=== PATIENT | male | born 1990 | race Hispanic/Latino ===

== ENCOUNTER 2019-02-20 12:32 | Emergency (ER) | payer SELFPAY ==
[2019-02-20 13:45] LABS: Absolute Lymphocytes (CBC) 1.3 K/uL (0.7-4.9); Basophils % 0.4 % (0-1.3); Hematocrit 42.2 % (39.6-49.0); Lymphocytes % 16.1 % (15.3-44.8); MPV 8.6 fL (7.6-11.3); RBC Red Blood Cell Count 4.75 M/uL (4.33-5.43)
[2019-02-20 13:53] LABS: Barbiturates NEGATIVE (NEGATIVE); Benzodiazepines NEGATIVE (NEGATIVE); Cocaine NEGATIVE (NEGATIVE); METHAMPHETAM NEGATIVE (NEGATIVE); Methadone NEGATIVE (NEGATIVE); Opiates NEGATIVE (NEGATIVE); Phencyclidine NEGATIVE (NEGATIVE); THC Cannibis NEGATIVE (NEGATIVE)
[2019-02-20 14:04] LABS: ALT/SGPT 121 U/L (12-78); AST/SGOT 54 U/L (15-37); Albumin 4.1 g/dL (3.4-5.0); Alkaline Phosphatase 69 U/L (45-117); BUN Blood Urea Nitrogen 10 mg/dL (7-18); Bicarbonate 31 mmol/L (21-32); Bilirubin Direct 0.2 mg/dL (0-0.2); Bilirubin Total 0.6 mg/dL (0.2-1.0); Glucose Level 135 mg/dL (74-106); Potassium 3.5 mmol/L (3.5-5.1); Protein, Total 7.8 g/dL (6.4-8.2); Sodium Level 140 mmol/L (136-145); Troponin (Emerg Dept Use Only) < 0.02 ng/mL (0.0-0.045)
[2019-02-20 14:08] LABS: Urine Blood NEGATIVE (NEG); Urine Glucose NEGATIVE (NEG); Urine Protein NEGATIVE (NEG); Urine Specific Gravity 1.025 (1.005-1.030); Urine pH 6.5 (5.0-7.0)
--- NOTE | 2019-02-20 14:13 | RAD REPORT ---
EXAM DESCRIPTION: RAD - Chest Single View - 02/20/2019 1:45 pm CLINICAL HISTORY: Chest pain COMPARISON: None. TECHNIQUE: AP portable chest image was obtained 1340 hours . FINDINGS: Lungs are clear. Heart and vasculature are normal. No measurable pleural effusion and no p neumothorax. No acute bony abnormality seen. No acute aortic findings suspected. IMPRESSION: No acute cardiopulmonary process.
--- NOTE | 2019-02-20 14:26 | ER ---
Nurse's Notes [facility] Name: Lang Oneill Age: 28 yrs Sex: Male : 1990 Arrival Date: 02/20/2019 Time: 12:34 Bed 17 Private MD: Diagnosis: Chest pain, unspecified Presentation: 02/20 12:39 Presenting complaint: Patient states: all week has been having some chest pain and iw today his left arm started feeling numb, cold, from shoulder to fingertips, also was feeling dizzy earlier. Transition of care: patient was not received from another setting of care. 12:39 Method Of Arrival: Ambulatory iw 12:40 Onset of symptoms was February 19, 2019. Risk Assessment: Do you want to hurt yourself iw or someone else? Patient reports no desire to harm self or others. Initial Sepsis Screen: Does the patient meet any 2 criteria? No. Patient's initial sepsis screen is negative. Does the patient have a suspected source of infection? No. Patient's initial sepsis screen is negative. Care prior to arrival: None. 12:40 Acuity: SUSIE 3 iw Triage Assessment: 12:49 General: Appears in no apparent distress. comfortable, Behavior is cooperative, bp appropriate for age, anxious. Pain: Complains of pain in chest. EENT: No deficits noted. Neuro: No deficits noted. Cardiovascular: Rhythm is sinus tachycardia. Respiratory: No deficits noted. GI: No signs and/or symptoms were reported involving the gastrointestinal system. : No signs and/or symptoms were reported regarding the genitourinary system. Derm: No deficits noted. Musculoskeletal: No deficits noted. Historical: - Allergies: 12:40 No Known Allergies; iw - Home Meds: 12:40 None [Active]; iw - PMHx: 12:40 None; iw - PSHx: 12:40 None; iw - Immunization history:: Adult Immunizations not up to date. - Social history:: Smoking status: Patient uses tobacco products, smokes one pack cigarettes per day. - Ebola Screening: : Patient negative for fever greater than or equal to 101.5 degrees Fahrenheit, and additional compatible Ebola Virus Disease symptoms Patient denies exposure to infectious person Patient denies travel to an Ebola-affected area in the 21 days before illness onset No symptoms or risks identified at this time. Screenin:56 Abuse screen: Denies threats or abuse. Denies injuries from another. Nutritional bp screening: No deficits noted. Tuberculosis screening: No symptoms or risk factors identified. Fall Risk None identified. Assessment: 12:50 General: SEE TRIAGE NOTE. bp 15:16 Reassessment: PT D/C HOME AMBULATORY, DX WITH NONSPECIC CHEST PAIIN. bp Vital Signs: 12:40 BP 142 / 87; Pulse 105; Resp 18; Temp 98.8(O); Pulse Ox 100% on R/A; Weight 114.76 kg; iw Height 5 ft. 11 in. (180.34 cm); Pain 0/10; 14:15 BP 122 / 98; Pulse 96; Resp 17; Pulse Ox 100% ; bp 12:40 Body Mass Index 35.29 (114.76 kg, 180.34 cm) iw ED Course: 12:34 Patient arrived in ED. rg4 12:40 Triage completed. iw 12:40 Arm band placed on. iw 12:47 Severino Feliz, [place] is Primary Nurse. bp 12:56 Patient has correct armband on for positive identification. Bed in low position. Call bp light in reach. Side rails up X2. 13:12 Jaiden Serrato NP is PHCP. pm1 13:12 Kee Dodd MD is Attending Physician. pm1 13:30 EKG done, by lab support technician. reviewed by Jaiden Serrato NP. 3 13:38 Initial lab(s) drawn, by or, sent to lab. Inserted saline lock: 22 gauge in right kj1 antecubital area, using aseptic technique. Blood collected. 13:45 XRAY Chest (1 view) In Process Unspecified. EDMS 15:18 No provider procedures requiring assistance completed. IV discontinued, intact, bp bleeding controlled, No redness/swelling at site. Pressure dressing applied. Administered Medications: No medications were administered Outcome: 14:26 Discharge ordered by . pm1 15:19 Discharged to home ambulatory. bp 15:19 Condition: stable 15:19 Discharge instructions given to patient, Instructed on discharge instructions, follow up and referral plans. Demonstrated understanding of instructions, follow-up care. 15:20 Patient left the ED. bp Signatures: Dispatcher [employer] EDMS Linda Hoffman RN RN Jaiden Serrato NP RESOLUTION REP pm1 Alba Keith rg4 Severino Feliz, RN RN bp Mary Desai sm3 Lydna Funez kj1 Corrections: (The following items were deleted from the chart) 12:41 12:40 BP 142 / 87; Pulse 105bpm; Resp 18bpm; Pulse Ox 100% RA; 114.76 kg; Height 5 ft. iw 11 in.; BMI: 35.2; Pain 0/10; iw
--- NOTE | 2019-02-20 14:27 | EDPHYS ---
Physician Documentation [facility] Name: Lang Oneill Age: 28 yrs Sex: Male : 1990 Arrival Date: 02/20/2019 Time: 12:34 Bed 17 Private MD: ED Physician Kee Dodd HPI: 02/20 13:43 This 28 yrs old Male presents to ER via Ambulatory with complaints of Chest pm1 pain, Numbness Of Arm. 13:43 The patient or guardian reports chest pain that is located primarily in the anterior pm1 aspect of left upper chest. The pain radiates to the left arm. Associated signs and symptoms: Pertinent negatives: abdominal pain, cough, diaphoresis, dizziness, headache, nausea, palpitations, shortness of breath, vomiting. The chest pain is described as a pressure. Duration: The patient or guardian reports a single episode, that is still ongoing, Onset: 7 days ago. Modifying factors: The symptoms are alleviated by Sleep. the symptoms are aggravated by nothing. Severity of pain: in the emergency department the pain has improved. The patient has not experienced similar symptoms in the past. The patient has not recently seen a physician. Historical: - Allergies: 12:40 No Known Allergies; iw - Home Meds: 12:40 None [Active]; iw - PMHx: 12:40 None; iw - PSHx: 12:40 None; iw - Immunization history:: Adult Immunizations not up to date. - Social history:: Smoking status: Patient uses tobacco products, smokes one pack cigarettes per day. - Ebola Screening: : Patient negative for fever greater than or equal to 101.5 degrees Fahrenheit, and additional compatible Ebola Virus Disease symptoms Patient denies exposure to infectious person Patient denies travel to an Ebola-affected area in the 21 days before illness onset No symptoms or risks identified at this time. ROS: 13:43 Constitutional: Negative for fever, chills, and weight loss, Eyes: Negative for injury, pm1 pain, redness, and discharge, ENT: Negative for injury, pain, and discharge, Neck: Negative for injury, pain, and swelling, Respiratory: Negative for shortness of breath, cough, wheezing, and pleuritic chest pain. 13:43 Abdomen/GI: Negative for abdominal pain, nausea, vomiting, diarrhea, and constipation, Back: Negative for injury and pain, : Negative for injury, bleeding, discharge, and swelling, MS/Extremity: Negative for injury and deformity, Skin: Negative for injury, rash, and discoloration, Neuro: Negative for headache, weakness, numbness, tingling, and seizure. 13:43 Cardiovascular: Positive for chest pain, Negative for edema, palpitations. Exam: 13:43 Constitutional: This is a well developed, well nourished patient who is awake, alert, pm1 and in no acute distress. Head/Face: Normocephalic, atraumatic. Neck: Trachea midline, no thyromegaly or masses palpated, and no cervical lymphadenopathy. Supple, full range of motion without nuchal rigidity, or vertebral point tenderness. No Meningismus. Chest/axilla: Normal chest wall appearance and motion. Nontender with no deformity. No lesions are appreciated. Cardiovascular: Regular rate and rhythm with a normal S1 and S2. No gallops, murmurs, or rubs. Normal PMI, no JVD. No pulse deficits. Respiratory: Lungs have equal breath sounds bilaterally, clear to auscultation and percussion. No rales, rhonchi or wheezes noted. No increased work of breathing, no retractions or nasal flaring. Abdomen/GI: Soft, non-tender, with normal bowel sounds. No distension or tympany. No guarding or rebound. No evidence of tenderness throughout. Back: No spinal tenderness. No costovertebral tenderness. Full range of motion. Skin: Warm, dry with normal turgor. Normal color with no rashes, no lesions, and no evidence of cellulitis. MS/ Extremity: Pulses equal, no cyanosis. Neurovascular intact. Full, normal range of motion. 13:43 Neuro: Orientation: is normal, Motor: is normal, moves all fours, Sensation: is normal, no obvious gross deficits, Gait: is steady, at a normal pace, without difficulty. Vital Signs: 12:40 BP 142 / 87; Pulse 105; Resp 18; Temp 98.8(O); Pulse Ox 100% on R/A; Weight 114.76 kg; iw Height 5 ft. 11 in. (180.34 cm); Pain 0/10; 14:15 BP 122 / 98; Pulse 96; Resp 17; Pulse Ox 100% ; bp 12:40 Body Mass Index 35.29 (114.76 kg, 180.34 cm) iw MDM: 13:12 Patient medically screened. pm1 13:45 Data reviewed: vital signs. Data interpreted: Pulse oximetry: on room air is 100 %. pm1 Interpretation: normal. 14:25 Counseling: I had a detailed discussion with the patient and/or guardian regarding: the pm1 historical points, exam findings, and any diagnostic results supporting the discharge/admit diagnosis, lab results, radiology results, the need for outpatient follow up, to return to the emergency department if symptoms worsen or persist or if there are any questions or concerns that arise at home. 02/20 13:16 Order name: UDS; Complete Time: 14:04 pm1 02/20 13:16 Order name: Basic Metabolic Panel; Complete Time: 14:25 pm1 02/20 13:16 Order name: CBC with Diff; Complete Time: 14:04 pm1 02/20 13:16 Order name: LFT's; Complete Time: 14:25 pm1 02/20 13:16 Order name: Troponin (emerg Dept Use Only); Complete Time: 14:25 pm1 02/20 13:57 Order name: Urine Dipstick--Ancillary (enter results); Complete Time: 14:25 eb 02/20 13:16 Order name: XRAY Chest (1 view); Complete Time: 14:25 pm1 02/20 13:16 Order name: EKG; Complete Time: 13:17 pm1 02/20 13:16 Order name: Cardiac monitoring; Complete Time: 14:01 pm1 02/20 13:16 Order name: EKG - Nurse/Tech; Complete Time: 14:01 pm1 02/20 13:16 Order name: IV Saline Lock; Complete Time: 14:01 pm1 02/20 13:16 Order name: Labs collected and sent; Complete Time: 14:01 pm1 02/20 13:16 Order name: O2 Per Protocol; Complete Time: 14:01 pm1 02/20 13:16 Order name: O2 Sat Monitoring; Complete Time: 14:01 pm1 Administered Medications: No medications were administered Disposition: 02/20/19 14:26 Discharged to Home. Impression: Chest pain, unspecified. - Condition is Stable. - Discharge Instructions: Nonspecific Chest Pain. - Medication Reconciliation Form, Thank You Letter, Antibiotic Education, Prescription Opioid Use form. - Follow up: Emergency Department; When: As needed; Reason: Worsening of condition. Follow up: Private Physician; When: 2 - 3 days; Reason: Recheck today's complaints, Continuance of care, Re-evaluation by your physician. - Problem is new. - Symptoms have improved. Addendum: 02/21/2019 15:21 Co-signature as Attending Physician, Kee Dodd MD. g s Signatures: Dispatcher [employer] EDLinda Hamm RN RN iw Jaiden Serrato, SCHOOL [employer]RARY MEDIA SPECIALIST SCHOOL [employer]RARY MEDIA SPECIALIST pm1 Kee Dodd MD MD gs Peltier, Brian RN RN bp Corrections: (The following items were deleted from the chart) 02/20 15:20 14:26 02/20/2019 14:26 Discharged to Home. Impression: Chest pain, unspecified. bp Condition is Stable. Forms are Medication Reconciliation Form, Thank You Letter, Antibiotic Education, Prescription Opioid Use. Follow up: Emergency Department; When: As needed; Reason: Worsening of condition. Follow up: Private Physician; When: 2 - 3 days; Reason: Recheck today's complaints, Continuance of care, Re-evaluation by your physician. Problem is new. Symptoms have improved. pm1
[2019-02-20 15:27] VITALS: TEMP 98.8; O2SAT 100
[2019-02-20 15:28] VITALS: BP 122/98
--- NOTE | 2019-02-21 12:56 | EKG ---
Test Date: 2019-02-20 Test Time: 13:25:00 Paralegal Instructor: CHETAN MEASUREMENT RESULTS: Intervals: Rate: 93 CT: 154 QRSD: 90 QT: 346 QTc: 430 Newton: P: 56 CT: 154 QRS: 2 T: 2 INTERPRETIVE STATEMENTS: Normal sinus rhythm Normal ECG No previous ECG available for comparison Electronically Signed On 02-21-19 12:55:00 CDT by Giancarlo Banegas
== END 2019-02-20 15:20 | disposition home or self-care (01) ==
LOC: ER 12:32
DX: R07.9 Chest pain, unspecified (principal); F17.210 Nicotine dependence, cigarettes, uncomplicated
CPT/HCPCS: 36415; 71045; 80048; 80076; 80307; 81003; 84484; 85025; 93005; 99284

== ENCOUNTER 2020-10-29 17:47 | Emergency (ER) | payer SELFPAY ==
--- OUTSIDE RECORDS SUMMARY | 2020-10-29 17:49 | XMS REPORT | Continuity of Care Document ---
:1990 Author Organization [facility] t Address [address] [place] [address] Care Team Providers Name Role Phone Elver Julia Velasquez Attending Clinician Unavailable Pob1, Care Clinic Attending Clinician Unavailable Problems This patient has no known problems. Allergies, Adverse Reactions, Alerts This patient has no known allergies or adverse reactions. Medications This patient has no known medications. Procedures This patient has no known procedures. Encounters Start End Encounter Admission Attending Care Care Encounter Source Date/Time Date/Time Type Type Clinicians Facility Department ID 2019-11-20 2019-11-20 Patient CHICHO Raya [id number] 00:00:00 00:00:00 Outreach Julia Sapp [id number] [place] [id number] Professio [phone] nal 044 Building 2019-11-19 2019-11-19 Urgent Pob1, Acute [facility] [id number] 08:37:42 09:52:09 [facility] [id number] [place] [id number] Professio [phone] nal 044 Office Building One Results This patient has no known results.
[2020-10-29] MEDS ORDERED: BUPIVACAINE 0.5% PF 10 ML VIAL ONE (21:44)
[2020-10-29] MEDS ORDERED: TETANUS & DIPHTHERIA TOX,ADULT 0.5 ML VIAL ONE (21:44)
--- NOTE | 2020-10-29 23:08 | EDPHYS ---
Physician Documentation [facility] Name: Lang Oneill Age: 30 yrs Sex: Male : 1990 Arrival Date: 10/29/2020 Time: 17:48 Bed 12 Private MD: ED Physician Karri Paez HPI: 10/29 21:12 This 30 yrs old Male presents to ER via Ambulatory with complaints of jmm Laceration - finger. 21:12 Onset: The symptoms/episode began/occurred acutely, just prior to arrival. Modifying jmm factors: The symptoms are alleviated by nothing, the symptoms are aggravated by nothing. Associated signs and symptoms: Pertinent negatives: decreased sensation distally, fever, numbness distally, tingling distally. This is a 30 year old male with no chronic medical conditions that presents to the ED with complaints of left 2nd finger injury which occurred after being cut by an edger. Denies other injury. Is not not UTD on tetanus immunization. . Historical: - Allergies: 18:40 No Known Allergies; kg - Home Meds: 18:40 None [Active]; kg - PMHx: 18:40 None; kg - PSHx: 18:40 None; kg - Immunization history:: Adult Immunizations not up to date, Last tetanus immunization: unknown. - Social history:: Smoking status: . ROS: 21:12 Constitutional: Negative for fever, chills, and weight loss, Cardiovascular: Negative jmm for chest pain, palpitations, and edema, Respiratory: Negative for shortness of breath, cough, wheezing, and pleuritic chest pain. 21:12 MS/extremity: Positive for laceration. 21:12 All other systems are negative. Exam: 21:12 Constitutional: This is a well developed, well nourished patient who is awake, alert, jmm and in no acute distress. Head/Face: atraumatic. Eyes: EOMI, no conjunctival erythema appreciated ENT: Moist Mucus Membranes Neck: Trachea midline, Supple Chest/axilla: Normal chest wall appearance and motion. Cardiovascular: Regular rate and rhythm. No edema appreciated Respiratory: Normal respirations, no respiratory distress appreciated Abdomen/GI: Non distended, soft Back: Normal ROM 21:12 Musculoskeletal/extremity: FROM noted to the left 2nd finger, < 2 sec dist cap refill, NVI. 21:12 Skin: 1.5 cm laceration noted to the left radial side of the 2nd finger. . 21:12 Neuro: Orientation: is normal, Mentation: is normal, Memory: is normal. 21:12 Psych: Behavior/mood is pleasant, cooperative. Vital Signs: 18:38 Pulse 86; Resp 20; Temp 97.1(TE); Pulse Ox 99% ; Weight 113.4 kg (R); Height 5 ft. 11 kg in. (180.34 cm) (R); Pain 2/10; 18:40 BP 97 / 82; kg 18:38 Body Mass Index 34.87 (113.40 kg, 180.34 cm) kg Laceration: 23:06 Wound Repair of 1.5cm ( 0.6in ) subcutaneous laceration to dorsal aspect of middle jmm phalanx of left index finger. Distal neuro/vascular/tendon intact. Anesthesia: Local anesthetic administered with 4 mls of 0.5% marcaine. Wound prep: Simple cleansing with betadine by me. Skin closed with 7 5-0 Prolene using simple sutures and sterile technique. Patient tolerated well. MDM: 21:08 Patient medically screened. [facility] 23:06 Data reviewed: vital signs, nurses notes. Counseling: I had a detailed discussion with mick the patient and/or guardian regarding: the historical points, exam findings, and any diagnostic results supporting the discharge/admit diagnosis, the need for outpatient follow up, to return to the emergency department if symptoms worsen or persist or if there are any questions or concerns that arise at home. ED course: Patient given wound infection return precautions. Patient understood and agrees with the plan of care. . Administered Medications: 21:26 Drug: Tetanus-Diphtheria Toxoid Adult 0.5 ml {Mirror Silverer: [employer]. Exp: em 07/09/2022. Lot #: [id number]. } Route: IM; Site: right deltoid; 21:30 Drug: Marcaine (bupivacaine)-Epinephrine (0.5 %) 10 ml Route: Infiltration; Site: wound;em Disposition: 10/30 06:40 Co-signature as Attending Physician, Karri Paez MD. mh7 Disposition: 10/29/20 23:08 Discharged to Home. Impression: Finger Laceration. - Condition is Stable. - Discharge Instructions: Laceration Care, Adult. - Prescriptions for Tramadol 50 mg Oral Tablet - take 1 tablet by ORAL route every 8 hours as needed; 12 tablet. Bactrim DS 800- 160 mg Oral Tablet - take 1 tablet by ORAL route every 12 hours for 7 days; 14 tablet. - Medication Reconciliation Form, Thank You Letter, Antibiotic Education, Prescription Opioid Use form. - Work release form (11/01/20 08:39). bd - Follow up: Private Physician; When: 7 - 10 days; Reason: Recheck today's complaints, Continuance of care, Staple/Suture removal, Re-evaluation by your physician. Signatures: Casper Carrasco PA PA jmm Munoz, Edgar, RN RN Rafaela Reed 5 Karri Paez MD MD 7 Heaven Amaya RN RN Tejal Marques Corrections: (The following items were deleted from the chart) 10/29 23:27 23:08 10/29/2020 23:08 Discharged to Home. Impression: Finger Laceration. Condition is mh5 Stable. Forms are Medication Reconciliation Form, Thank You Letter, Antibiotic Education, Prescription Opioid Use. Follow up: Private Physician; When: 7 - 10 days; Reason: Recheck today's complaints, Continuance of care, Staple/Suture removal, Re-evaluation by your physician. mick
--- NOTE | 2020-10-29 23:08 | ER ---
Nurse's Notes [facility] Name: Lang Oneill Age: 30 yrs Sex: Male : 1990 Arrival Date: 10/29/2020 Time: 17:48 Bed 12 Private MD: Diagnosis: Finger Laceration Presentation: 10/29 18:38 Chief complaint: Patient states: Patient cut his finger on frame trimmer. at 17:30. kg Coronavirus screen: Client denies travel out of the [place] in the last 14 days. At this time, unable to obtain information related to travel outside the [place] At this time, the client does not indicate any symptoms associated with coronavirus-19. Ebola Screen: Patient negative for fever greater than or equal to 101.5 degrees Fahrenheit, and additional compatible Ebola Virus Disease symptoms Patient denies exposure to infectious person. Patient denies travel to an Ebola-affected area in the 21 days before illness onset. Complicating Factors: There are no complicating factors for this patient. Initial Sepsis Screen: Does the patient meet any 2 criteria? No. Patient's initial sepsis screen is negative. Does the patient have a suspected source of infection? No. Patient's initial sepsis screen is negative. Risk Assessment: Do you want to hurt yourself or someone else? Patient reports no desire to harm self or others. Onset of symptoms was October 29, 2020 at 17:30. 18:38 Method Of Arrival: Ambulatory kg 18:38 Acuity: SUSIE 4 kg Triage Assessment: 18:41 General: Appears Behavior is calm, cooperative, appropriate for age, quiet. Pain: kg Complains of pain in right hand. Injury Description: Laceration sustained to dorsal aspect of middle phalanx of right ring finger and palmar aspect of middle phalanx of right ring finger is contaminated, was sustained 1-2 hours ago. is bleeding a small amount. Historical: - Allergies: 18:40 No Known Allergies; kg - Home Meds: 18:40 None [Active]; kg - PMHx: 18:40 None; kg - PSHx: 18:40 None; kg - Immunization history:: Adult Immunizations not up to date, Last tetanus immunization: unknown. - Social history:: Smoking status: . Screenin:40 Abuse screen: Denies threats or abuse. Denies injuries from another. Nutritional kg screening: No deficits noted. Tuberculosis screening: No symptoms or risk factors identified. Fall Risk None identified. Assessment: 18:42 Musculoskeletal: No deficits noted. Injury Description: Laceration sustained to dorsal kg aspect of distal phalanx of right ring finger, dorsal aspect of middle phalanx of right ring finger, palmar aspect of middle phalanx of right ring finger and right ring fingernail. Vital Signs: 18:38 Pulse 86; Resp 20; Temp 97.1(TE); Pulse Ox 99% ; Weight 113.4 kg (R); Height 5 ft. 11 kg in. (180.34 cm) (R); Pain 2/10; 18:40 BP 97 / 82; kg 18:38 Body Mass Index 34.87 (113.40 kg, 180.34 cm) kg ED Course: 17:48 Patient arrived in ED. as 18:39 Triage completed. kg 18:41 Arm band placed on right wrist. kg 19:31 Casper Carrasco PA is PHCP. [facility] 19:31 Karri Paez MD is Attending Physician. [facility] 21:20 Herrera Gonzalez, [place] is Primary Nurse. em 22:05 Assist provider with laceration repair on palmar aspect of distal phalanx of left index rr5 finger and palmar aspect of middle phalanx of left index finger that was 2.5 cm. or less using sutures. Set up tray. Performed by Casper CHANG Dressed with 4X4s, Neosporin, Patient tolerated well. 23:00 Patient did not have IV access during this emergency room visit. rr5 Administered Medications: 21:26 Drug: Tetanus-Diphtheria Toxoid Adult 0.5 ml {Commercial Real Estate Assistant: [employer]. Exp: em 07/09/2022. Lot #: [id number]. } Route: IM; Site: right deltoid; 21:30 Drug: Marcaine (bupivacaine)-Epinephrine (0.5 %) 10 ml Route: Infiltration; Site: wound;em Outcome: 23:08 Discharge ordered by . [facility] 23:25 Discharged to home ambulatory, with family. rr5 23:25 Condition: good 23:25 Discharge instructions given to patient, Instructed on discharge instructions, follow up and referral plans. medication usage, wound care, Demonstrated understanding of instructions, follow-up care, medications, wound care, Prescriptions given X 2. 23:27 Patient left the ED. [facility] Signatures: Casper Carrasco PA PA jmm Munoz, Edgar, RN RN Melanie Reed Maria [facility] Kenneth Villagomez RN RN rr5 Heaven Amaya RN RN kg
[2020-10-29 23:51] VITALS: TEMP 97.1; O2SAT 99
[2020-10-29 23:52] VITALS: BP 97/82
== END 2020-10-29 23:27 | disposition home or self-care (01) ==
LOC: ER 17:47
PROC: 0JQK0ZZ Repair Left Hand Subcutaneous Tissue and Fascia, Open Approach (ICD-10-PCS; principal; 2020-10-29)
DX: S61.211A Laceration without foreign body of left index finger without damage to nail, initial encounter (principal); W29.3XXA Contact with powered garden and outdoor hand tools and machinery, initial encounter; Z23 Encounter for immunization
CPT/HCPCS: 90714

== ENCOUNTER 2021-11-08 16:24 | Emergency (ER) | payer SELFPAY ==
[2021-11-08 18:22] LABS: Absolute Lymphocytes (CBC) 1.8 K/uL (0.7-4.9); Hematocrit 44.3 % (39.6-49.0); Lymphocytes % 24.5 % (15.3-44.8); MCV 87.4 fL (80-100); MPV 8.3 fL (7.6-11.3); RBC Red Blood Cell Count 5.07 M/uL (4.33-5.43)
[2021-11-08 18:26] LABS: Protime INR 1.09
[2021-11-08 18:39] LABS: ALT/SGPT 91 U/L (12-78); AST/SGOT 28 U/L (15-37); Albumin 3.8 g/dL (3.4-5.0); Alkaline Phosphatase 60 U/L (45-117); BUN Blood Urea Nitrogen 15 mg/dL (7-18); Bicarbonate 28 mmol/L (21-32); Bilirubin Direct 0.1 mg/dL (0-0.2); Bilirubin Total 0.4 mg/dL (0.2-1.0); Glomerular Filtration Rate 120 ml/min (=/>90); Glucose Level 94 mg/dL (74-106); Lipase 72 U/L (73-393); Magnesium 2.2 mg/dL (1.8-2.4); Potassium 3.9 mmol/L (3.5-5.1); Protein, Total 7.5 g/dL (6.4-8.2); Sodium Level 139 mmol/L (136-145); Troponin High Sensitivity < 3.0 pg/mL (<58.9)
--- NOTE | 2021-11-08 18:39 | RAD REPORT ---
EXAM DESCRIPTION: RAD - Chest Single View - 11/08/2021 6:33 pm CLINICAL HISTORY: CHEST PAIN Chest pain. COMPARISON: Chest Single View dated 02/20/2019 FINDINGS: Portable technique limits examination quality. The lungs are grossly clear. The heart is normal in size. No displaced fractures. IMPRESSION: No acute intrathoracic process suspected.
[2021-11-08] MEDS ORDERED: PANTOPRAZOLE 40 MG INJ ONE (18:57)
[2021-11-08] MEDS ORDERED: ONDANSETRON 4 MG/2 ML VIAL ONE (18:57)
--- NOTE | 2021-11-08 20:42 | RAD REPORT ---
EXAM DESCRIPTION: CTAbdomen Pelvis W Contrast - 11/08/2021 8:28 pm CLINICAL HISTORY: Abdominal pain. Epigastric pain COMPARISON: No comparisons TECHNIQUE: Biphasic CT imaging of the abdomen and pelvis was performed with 100 ml non-ionic IV cont rast. All CT scans are performed using dose optimization technique as appropriate and may include automated exposure control or mA/KV adjustment according to patient size. FINDINGS: The lung bases are clear. The liver is diffusely fatty. Spleen, pancreas, adrenal glands and kidneys are within normal limits. No bowel obstruction, free air, free fluid or abscess. The appendix is normal. No evidence of signi ficant lymphadenopathy. No suspicious bony findings. IMPRESSION: No acute intra-abdominal or pelvic finding. Fatty liver.
--- NOTE | 2021-11-08 21:30 | ER ---
Nurse's Notes [facility] Name: Lang Oneill Age: 31 yrs Sex: Male : 1990 Arrival Date: 11/08/2021 Time: 16:25 Bed 16 Private MD: Diagnosis: Epigastric pain;Chest pain, unspecified Presentation: 11/08 16:37 Chief complaint: Patient states: Pt denies chest pain. C/O Abdominal pain, ISAI flank ld1 pain since Sunday. Pt reports after eating he feels nauseous. Coronavirus screen: At this time, the client does not indicate any symptoms associated with coronavirus-19. Ebola Screen: No symptoms or risks identified at this time. Initial Sepsis Screen: Does the patient meet any 2 criteria? No. Patient's initial sepsis screen is negative. Does the patient have a suspected source of infection? No. Patient's initial sepsis screen is negative. Risk Assessment: Do you want to hurt yourself or someone else? Patient reports no desire to harm self or others. Onset of symptoms was November 08, 2021 at 16:38. 16:37 Method Of Arrival: Ambulatory ld1 16:37 Acuity: SUSIE 3 ld1 Triage Assessment: 16:38 General: Appears in no apparent distress. comfortable, Behavior is calm, cooperative, ld1 appropriate for age. Pain: Complains of pain in abdomen Pain does not radiate. Pain currently is 8 out of 10 on a pain scale. EENT: No signs and/or symptoms were reported regarding the EENT system. Neuro: Level of Consciousness is awake, alert, obeys commands, Oriented to person, place, time, situation. Cardiovascular: Capillary refill < 3 seconds Patient's skin is warm and dry. Respiratory: Airway is patent Respiratory effort is even, unlabored. GI: Abdomen is round non-distended. : No signs and/or symptoms were reported regarding the genitourinary system. Historical: - Allergies: 16:38 No Known Allergies; ld1 - Home Meds: 16:38 None [Active]; ld1 - PSHx: 16:38 None; ld1 - Immunization history:: Adult Immunizations up to date, Client reports having NOT received the Covid vaccine. - Social history:: Smoking status: Patient denies any tobacco usage or history of. Patient/guardian denies using alcohol. Screenin:44 Abuse screen: Denies threats or abuse. Denies injuries from another. Nutritional jh6 screening: No deficits noted. Tuberculosis screening: No symptoms or risk factors identified. Fall Risk None identified. Assessment: 17:30 General: Appears in no apparent distress. Behavior is calm, cooperative. Pain: jh6 Complains of pain in epigastric area Pain radiates to left subscapular area and right subscapular area Pain currently is 3 out of 10 on a pain scale. Quality of pain is described as burning, crampy, Pain began 2-3 days ago. Is intermittent, Aggravated by eating, layong down. 17:30 GI: Bowel sounds present X 4 quads. Abd is non tender X 4 quads Reports upper abdominal jh6 pain. 21:10 General: Appears in no apparent distress. comfortable, Behavior is calm, cooperative. lg3 Pain: Denies pain. Neuro: No deficits noted. Level of Consciousness is awake, alert, obeys commands, Oriented to person, place, time, situation. Cardiovascular: No deficits noted. Denies chest pain, shortness of breath, Capillary refill < 3 seconds Clubbing of nail beds is absent JVD is absent Patient's skin is warm and dry. Respiratory: No deficits noted. Airway is patent Trachea midline Respiratory effort is even, unlabored, Respiratory pattern is regular, symmetrical. GI: Bowel sounds present X 4 quads. Abd is soft X 4 quads Abd is non tender X 4 quads. : No deficits noted. No signs and/or symptoms were reported regarding the genitourinary system. EENT: No deficits noted. No signs and/or symptoms were reported regarding the EENT system. Derm: No deficits noted. No signs and/or symptoms reported regarding the dermatologic system. Skin is intact, is healthy with good turgor, Skin is dry, Skin temperature is warm. Musculoskeletal: No deficits noted. No signs and/or symptoms reported regarding the musculoskeletal system. Circulation, motion, and sensation intact. Range of motion: intact in all extremities. Vital Signs: 16:37 BP 116 / 68; Pulse 77; Resp 18; Temp 97.5(O); Pulse Ox 99% on R/A; Weight 117.93 kg; ld1 Height 5 ft. 11 in. (180.34 cm); Pain 7/10; 21:11 BP 124 / 74; Pulse 72; Resp 17 S; Pulse Ox 100% on R/A; lg3 16:37 Body Mass Index 36.26 (117.93 kg, 180.34 cm) ld1 ED Course: 16:25 Patient arrived in ED. rg4 16:30 Richie Kwok PA is PHCP. cp 16:30 Jez Buenrostro DO is Attending Physician. cp 16:38 Triage completed. ld1 16:38 Arm band placed on right wrist. ld1 17:42 Yumiko Rendon, [place] is Primary Nurse. jh6 17:44 No provider procedures requiring assistance completed. jh6 17:45 Bed in low position. Call light in reach. Side rails up X 1. jh6 17:53 Inserted saline lock: 20 gauge in left antecubital area, using aseptic technique. Blood jh6 collected. 18:35 XRAY Chest (1 view) In Process Unspecified. EDMS 19:24 Primary Nurse role handed off by Yumiko Rendon RN mw2 20:30 CT Abd/Pelvis - IV Contrast Only In Process Unspecified. EDMS 21:05 Luciana Devine, [place] is Primary Nurse. lg3 21:28 Roberto Tejeda MD is Referral Physician. cp 21:45 IV discontinued, intact, bleeding controlled, No redness/swelling at site. Pressure lg3 dressing applied. Administered Medications: 18:54 Drug: ProTONIX (pantoprazole) 40 mg Route: IVP; Site: left antecubital; jh6 18:54 Drug: Zofran (Ondansetron) 4 mg Route: IVP; Site: left antecubital; jh6 Medication: 21:45 VIS not applicable for this client. lg3 Outcome: 21:29 Discharge ordered by . cp 21:44 Discharged to home ambulatory. lg3 21:44 Condition: stable 21:44 Discharge instructions given to patient, Instructed on discharge instructions, follow up and referral plans. medication usage, Demonstrated understanding of instructions, follow-up care, medications, Prescriptions given X 2. 22:03 Patient left the ED. mw2 Signatures: Dispatcher [employer] EDMS Richie Kwok PA PA cp Garcia, Rubi rg4 Nathaniel Beck mw2 Luciana Devine RN RN lg3 Tari Valentino RN RN ld1 Yumiko Rendon RN RN jh6 Corrections: (The following items were deleted from the chart) 16:40 16:37 Chief complaint: Patient states: Pt denies chest pain. C/O Abdominal pain, ISAI ld1 flank pain since Sunday ld1 17:44 17:42 General: Appears in no apparent distress. Behavior is calm, cooperative, 6 jh6 17:44 17:42 Pain: Complains of pain in epigastric area Pain radiates to left subscapular area jh6 and right subscapular area Pain currently is 3 out of 10 on a pain scale. Quality of pain is described as burning, crampy, Pain began 2-3 days ago. Is intermittent, Aggravated by eating, layong down jh6
--- NOTE | 2021-11-08 21:30 | EDPHYS ---
Physician Documentation [facility] Name: aLng Oneill Age: 31 yrs Sex: Male : 1990 Arrival Date: 11/08/2021 Time: 16:25 Bed 16 Private MD: ED Physician Jez Buenrostro Historical: - Allergies: 11/08 16:38 No Known Allergies; ld1 - Home Meds: 16:38 None [Active]; ld1 - PSHx: 16:38 None; ld1 - Immunization history:: Adult Immunizations up to date, Client reports having NOT received the Covid vaccine. - Social history:: Smoking status: Patient denies any tobacco usage or history of. Patient/guardian denies using alcohol. Exam: 16:48 ECG was reviewed by the Attending Physician. cp Vital Signs: 16:37 BP 116 / 68; Pulse 77; Resp 18; Temp 97.5(O); Pulse Ox 99% on R/A; Weight 117.93 kg; ld1 Height 5 ft. 11 in. (180.34 cm); Pain 7/10; 21:11 BP 124 / 74; Pulse 72; Resp 17 S; Pulse Ox 100% on R/A; lg3 16:37 Body Mass Index 36.26 (117.93 kg, 180.34 cm) ld1 MDM: 17:34 Patient medically screened. cp 07/05 17:35 Order name: Basic Metabolic Panel; Complete Time: 18:40 cp /05 17:35 Order name: CBC with Diff; Complete Time: 18:40 cp /05 17:35 Order name: D-Dimer; Complete Time: 18:40 cp /05 17:35 Order name: LFT's; Complete Time: 18:40 cp 07/05 18:40 Interpretation: Normal except: ALT 91; GLOB 3.7; A/G 1.0. cp 07/05 17:35 Order name: Magnesium; Complete Time: 18:40 cp 07/05 17:35 Order name: PT-INR; Complete Time: 18:40 cp 07/05 17:35 Order name: Troponin HS; Complete Time: 18:40 cp 07/05 17:35 Order name: XRAY Chest (1 view); Complete Time: 18:41 cp 07/05 17:35 Order name: EKG; Complete Time: 17:36 cp 11/08 17:35 Order name: Cardiac monitoring; Complete Time: 17:45 cp 11/08 17:35 Order name: Lipase; Complete Time: 18:40 cp 11/08 18:42 Order name: CT Abd/Pelvis - IV Contrast Only; Complete Time: 21:08 cp 11/08 17:35 Order name: EKG - Nurse/Tech; Complete Time: 17:45 cp 11/08 17:35 Order name: IV Saline Lock; Complete Time: 18:54 cp 11/08 17:35 Order name: Labs collected and sent; Complete Time: 18:54 cp 11/08 17:35 Order name: O2 Per Protocol; Complete Time: 18:54 cp 11/08 17:35 Order name: O2 Sat Monitoring; Complete Time: 18:54 cp EC:48 Rate is 73 beats/min. Rhythm is regular. GA interval is normal. QRS interval is normal. cp QT interval is normal. T waves are Inverted in leads III, aVF, aVR. Interpreted by me. Reviewed by me. Administered Medications: 18:54 Drug: ProTONIX (pantoprazole) 40 mg Route: IVP; Site: left antecubital; [facility] 18:54 Drug: Zofran (Ondansetron) 4 mg Route: IVP; Site: left antecubital; [facility] Disposition: 21:40 Co-signature as Attending Physician, Jez ROGERS was immediately available on-site ms3 in the Emergency Department for consultation in the care of the Patient.. Disposition Summary: 11/08/21 21:29 Discharge Ordered Location: Home cp Problem: new cp Symptoms: have improved cp Condition: Stable cp Diagnosis - Epigastric pain cp - Chest pain, unspecified cp Followup: cp - With: Roberto Tejeda MD - When: 1 week - Reason: pain continues Discharge Instructions: - Discharge Summary Sheet cp - Nonspecific Chest Pain, Adult cp - Gastroesophageal Reflux Disease, Adult cp Forms: - Medication Reconciliation Form cp - Thank You Letter cp - Antibiotic Education cp - Prescription Opioid Use cp - Work release form lg3 Prescriptions: - Protonix 40 mg Oral Tablet - take 1 tablet by ORAL route once daily; 30 tablet; Refills: 0, Product cp Selection Permitted - Zofran 4 mg Oral Tablet - take 1 tablet by ORAL route every 12 hours As needed; 20 tablet; Refills: 0, cp Product Selection Permitted Signatures: Dispatcher [employer] EDMS Richie Kwok PA PA cp Sims, Marcus, DO DO ms3 Tari Valentino, RN RN ld1 Yumiko Rendon RN RN jh6
[2021-11-08 22:47] VITALS: TEMP 97.5
[2021-11-08 22:49] VITALS: BP 124/74; O2SAT 100
--- NOTE | 2021-11-09 11:08 | EKG ---
Test Date: 2021-11-08 Test Time: 16:46:51 [place] Supervisor: EDITA MEASUREMENT RESULTS: Intervals: Rate: 73 DC: 146 QRSD: 88 QT: 368 QTc: 405 [place]: P: 29 DC: 146 QRS: 4 T: -21 INTERPRETIVE STATEMENTS: Normal sinus rhythm T wave abnormality, consider inferior ischemia Abnormal ECG Compared to ECG 02/20/2019 13:25:00 T-wave abnormality now present Possible ischemia now present Electronically Signed On 11-09-21 11:06:29 CDT by Aron Goode
== END 2021-11-08 22:03 | disposition home or self-care (01) ==
LOC: ER 16:24
DX: R07.9 Chest pain, unspecified (principal); R10.13 Epigastric pain
CPT/HCPCS: 36415; 71045; 74177; 80048; 80076; 83690; 83735; 84484; 85025; 85379; 85610; 93005; C9113; J2405; Q9967

== ENCOUNTER 2022-04-11 13:25 | Inpatient (IN) | payer SELFPAY ==
--- OUTSIDE RECORDS SUMMARY | 2022-04-11 13:28 | XMS REPORT | Continuity of Care Document ---
:1990 Author Organization [facility] t Address [address] [place] [address] Care Team Providers Name Role Phone Julia Raya Attending Clinician Unavailable Pob1, Acute Care Clinic Attending Clinician Unavailable Jovita Loomis Attending Clinician Problems Condition Condition Condition Status Onset Resolution Last Treating Co mments Source Name Details Category Date Date Treatment Clinician Date Epigastric Epigastric Disease Active 2020-0 U nivers discomfort discomfort 7-15 it y of 00:00: [address] Belching Belching Disease Active 2020-0 Unive rs 7-15 ity of 00:00: [address] Allergies, Adverse Reactions, Alerts Allergy Allergy Status Severity Reaction(s) Onset Inactive Treating Comm ents Source Name Type Date Date Clinician NO KNOWN Drug Active Univers ALLERGIE Class ity of S [facility] Social History Social Habit Start Date Stop Date Quantity Comments Source History of Cigarette Smoker Universi ty of tobacco use [facility] Sex Assigned At Universit y of [facility] Exposure to Yes University SARS-CoV-2 [facility] (event) [place] Alcohol intake 2019-11-19 2019-11-19 University of 00:00:00 00:00:00 [facility] Alcohol Comment 2019-11-19 2019-11-19 occasional Universit y of 00:00:00 00:00:00 [facility] Smoking Status Start Date Stop Date Source Current some day smoker 2019-11-19 00:00:00 Univ ersity of [facility] Medications Ordered Filled Start Stop Current Ordering Indication Dosage Frequency Signature Comments Components Source Medication Medication Date Date Medication? Clinician (SIG) Name Name Omeprazole 2019-0 Yes [id number] 20mg Take 1 Univers 20 mg 7-15 tablet by ity of tablet 00:00: mouth [place] 00 daily. Medical Branch Omeprazole 2019-0 Yes [id number] 20mg Take 1 Univers 20 mg 7-15 tablet by ity of tablet 00:00: mouth [place] 00 daily. Medical Branch Omeprazole 2019- Yes [id number] 20mg Take 1 Univers 20 mg 7-15 tablet by ity of tablet 00:00: mouth [place] 00 daily. Medical Branch busPIRone 5 2020- No [id number] 5mg Take 1 Univers mg tablet 7-15 08-15 tablet by ity of 00:00: 04:59 mouth 2 [place] 00 :00 (two) Medical times Branch daily for 30 days. busPIRone 5 2019- 2020- No [id number] 5mg Take 1 Univers mg tablet 7-15 08-15 tablet by ity of 00:00: 04:59 mouth 2 [place] 00 :00 (two) Medical times [place] daily for 30 days. busPIRone 5 2019- No [id number] 5mg Take 1 Univers mg tablet 7-15 08-15 tablet by ity of 00:00: 04:59 mouth 2 [place] 00 :00 (two) Medical times Branch daily for 30 days. Vital Signs Vital Name Observation Time Observation Value Comments Source Systolic blood 2019-11-19 13:44:00 123 mm[Hg] [facility] Diastolic blood 2019-11-19 13:44:00 86 mm[Hg] [facility] [place] [facility] 2019-11-19 13:44:00 72 /min [facility] Body temperature 2019-11-19 13:44:00 37 Sherri [facility] Respiratory rate 2019-11-19 13:44:00 18 /min [facility] Body height 2019-11-19 13:44:00 182.9 cm [facility] Body weight 2019-11-19 13:44:00 112.492 kg [facility] BMI 2019-11-19 13:44:00 33.63 kg/m2 [facility] Oxygen saturation in 2019-11-19 13:44:00 98 /min [facility] blood by [facility] Pulse oximetry Branch Systolic blood 2019-11-19 13:44:00 123 mm[Hg] Univer sity of pressure [facility] Diastolic blood 2019-11-19 13:44:00 86 mm[Hg] Unive rsity of pressure [facility] Heart rate 2019-11-19 13:44:00 72 /min [facility] Body temperature 2019-11-19 13:44:00 37 Sherri [facility] 2019-11-19 13:44:00 18 /min [facility] Body height 2019-11-19 13:44:00 182.9 cm Universi ty [facility] Body weight 2019-11-19 13:44:00 112.492 kg [facility] BMI 2019-11-19 13:44:00 33.63 kg/m2 [facility] Oxygen saturation in 2019-11-19 13:44:00 98 /min [facility] blood by [facility] Pulse oximetry [place] Procedures Procedure Date / Time Performing Clinician Source Performed LIPASE 2019-11-19 14:37:00 Barbi Sorto [facility] THYROID STIMULATING 2019-11-19 14:37:00 Barbi Sorto [facility] HORMONE [facility] COMP. METABOLIC PANEL 2019-11-19 14:37:00 Barbi Sorto [facility] ([id number]) [facility] CBC WITH DIFFERENTIAL 2019-11-19 14:37:00 Barbi Sorto [facility] GLYCOSYLATED HEMOGLOBIN 2019-11-19 14:37:00 Barbi Sorto [facility] (A1C) [facility] Encounters Start End Encounter Admission Attending Care Care Encounter Source Date/Time Date/Time Type Type Clinicians Facility Department ID 2019-11-20 2019-11-20 Patient Elver IAMANOJ [id number] Univers 00:00:00 00:00:00 Outreach Julia Sapp [id number] ity corrie [place] 4.2.7.2.686 Jayashree Zamora [id number] [place] [address] Branch Building 2019-11-20 2019-11-20 Patient CHICHO Raya [id number] 00:00:00 00:00:00 Outreach Julia N [place] [id number] [place] 4.2.7.2.686 Professio [phone] [address] 2019-11-19 2019-11-19 Urgent Pob1, Acute Care [facility] 1. [id number] Univers 08:37:42 09:52:09 Care [facility] [id number] ity [facility] [id number] Juan Carlos as Professio [phone] Nh dical [address] Office Building One 2019-11-19 2019-11-19 Urgent Pob1, Acute [facility] [id number] 08:37:42 09:52:09 [facility] [id number] [place] 4.2.7.2.686 Professio [phone] [place] [address] Office Building [facility] 2019-11-19 2019-11-19 Outpatient R [facility] [id number] Univers 08:40:00 08:40:00 [facility] Results Test Description Test Time Test Comments Results Result Comments Source THYROID STIMULATING HORMONE 2019-11-19 17:48:00 Test Item Value Reference Range Interpretation Comme nts TSH (test code = 1309231886) See_Comment [Automated message] The system which generated this result transmitted ref erence range: 0.45 - 4.70 mIU/L. T he reference range was not used to interpret this result as saloni l/abnormal. Lab Interpretation (test code = Normal 34694-7) [facility] [id number] 17:48:00 Test Item Value Reference Range Interpretation Comments TSH (test code = See_Comment [Automated message] [id number]) The system whic h generated this result transmitted ref erence range: 0.45 - 4 .70 mIU/L. The refe rence range was not u sed to interpret this result as normal/abnor mal. Lab Interpretation (test Normal code = 20460-1) [facility] PAN[facility] ([id number])2019-11-19 17:17:00 Test Item Value Reference Range Interpretation Comments NA (test code = 138 mmol/L 135-145 8967744096) K (test code = 4.5 mmol/L 3.5-5 4113366949) CL (test code = 102 mmol/L 98-108 7491025343) CO2 TOTAL (test code = 26 mmol/L 23-31 5067923100) AGAP (test code = 2-16 2814987696) BUN (test code = 17 mg/dL 7-23 3937000997) GLUCOSE (test code = 97 mg/dL 70-110 8269087539) CREATININE (test code = 0.78 mg/dL 0.6-1.25 2230958978) TOTAL BILI (test code = 1.0 mg/dL 0.1-1.3 4925931548) CALCIUM (test code = 10.0 mg/dL 8.6-10.6 4053907560) T PROTEIN (test code = 7.8 g/dL 6.3-8.2 6068298535) ALBUMIN (test code = 4.6 g/dL 3.5-5 8364590971) ALK PHOS (test code = 51 U/L 34-122 4034788467) ALTv (test code = 115 U/L 5-50 H 1742-6) AST(SGOT) (test code = 62 U/L 13-40 H 4338635737) eGFR Calculation mL/min/1.73m2 (Non-) (test code = 8774580947) eGFR Calculation mL/min/1.73m2 () (test code = 5526303505) DON (test code = DON) Association of Glomerular Filtration Rate (GFR) and Staging of Kidney Disease* + --+ --+ ------+| GFR (mL/min/1.73 m2) ?| With Kidney Damage ?| ?Without Kidney Damage+ --------+ --------+ +| ?>90 ?| ?Stage one ?| ? Normal ?+ ---+ ---+ -------+| ?60-89 ?| ?Stage two ?| ? Decreased GFR ? + --+ --+ ------+| ?30-59 ?| ?Stage three ?| ? Stage three ? + --+ --+ ------+| ?15-29 ?| ?Stage four ? | ? Stage four ?+ ---+ ---+ -------+| ?<15 (or dialysis) ? ?| ?Stage five ? | ? Stage five ?+ ---+ ---+ -------+ *Each stage assumes the associated GFR level has been in effect for at least three months. ?Stages 1 to 5, with or without kidney disease, indicate chronic kidney disease. Notes: Determination of stages one and two (with eGFR >59mL/min/1.73 m2) requires estimation of kidney damage for at least three months as defined by structural or functional abnormalities of the kidney, manifested by either:Pathological abnormalities or Markers of kidney damage (including abnormalities in the composition of the blood or urine or abnormalities in imaging tests). Lab Interpretation Abnormal (test code = 57403-2) [facility] 17:17:00 Test Item Value Reference Range Interpretation Comments LIPASE (test code = 0284828715) 56 U/L 0-220 Lab Interpretation (test code = Normal 52223-5) [facility]OLIC PANEL ([id number])2019-11-19 17:17:00 Test Item Value Reference Range Interpretation Comments NA (test code = 138 mmol/L 135-145 1922855946) K (test code = 4.5 mmol/L 3.5-5 5135604471) CL (test code = 102 mmol/L 98-108 6763964730) CO2 TOTAL (test code = 26 mmol/L 23-31 6578077854) AGAP (test code = 2-16 1623447232) BUN (test code = 17 mg/dL 7-23 9639815015) GLUCOSE (test code = 97 mg/dL 70-110 8621971579) CREATININE (test code = 0.78 mg/dL 0.6-1.25 3890781956) TOTAL BILI (test code = 1.0 mg/dL 0.1-1.6 6056176749) CALCIUM (test code = 10.0 mg/dL 8.6-10.6 0234873397) T PROTEIN (test code = 7.8 g/dL 6.3-8.2 8656491731) ALBUMIN (test code = 4.6 g/dL 3.5-5 5960948382) ALK PHOS (test code = 51 U/L 34-122 4615779357) ALTv (test code = 115 U/L 5-50 H 1742-6) AST(SGOT) (test code = 62 U/L 13-40 H 0229950286) eGFR Calculation mL/min/1.73m2 (Non-) (test code = 7167543747) eGFR Calculation mL/min/1.73m2 () (test code = 4167987669) DON (test code = DON) Association of Glomerular Filtration Rate (GFR) and Staging of Kidney Disease* + --+ --+ ------+| GFR (mL/min/1.73 m2) ?| With Kidney Damage ?| ?Without Kidney Damage+ --------+ --------+ +| ?>90 ?| ?Stage one ?| ? Normal ?+ ---+ ---+ -------+| ?60-89 ?| ?Stage two ?| ? Decreased GFR ? + --+ --+ ------+| ?30-59 ?| ?Stage three ?| ? Stage three ? + --+ --+ ------+| ?15-29 ?| ?Stage four ? | ? Stage four ?+ ---+ ---+ -------+| ?<15 (or dialysis) ? ?| ?Stage five ? | ? Stage five ?+ ---+ ---+ -------+ *Each stage assumes the associated GFR level has been in effect for at least three months. ?Stages 1 to 5, with or without kidney disease, indicate chronic kidney disease. Notes: Determination of stages one and two (with eGFR >59mL/min/1.73 m2) requires estimation of kidney damage for at least three months as defined by structural or functional abnormalities of the kidney, manifested by either:Pathological abnormalities or Markers of kidney damage (including abnormalities in the composition of the blood or urine or abnormalities in imaging tests). Lab Interpretation Abnormal (test code = 13504-1) [facility] 17:17:00 Test Item Value Reference Range Interpretation Comments LIPASE (test code = 7280541512) 56 U/L 0-220 Lab Interpretation (test code = Normal 87613-8) [facility] H[facility]GLOBIN (A1C)2019-11-19 17:00:00 Test Item Value Reference Range Interpretation Comments HGB A1C (test code = 5.5 % 4-6 4548-4) DON (test code = DON) %A1C (NGSP) Interpretation (ADA)4.8-5.6 ? ? Normal or (Non-Diabetic Range)5.7-6.4 ? ? Increased Risk (Pre-Diabetic)>6.5 ?Diabetes Indicated Lab Interpretation Normal (test code = 30717-1) [facility] (A1C)2019-11-19 17:00:00 Test Item Value Reference Range Interpretation Comments HGB A1C (test code = 5.5 % 4-6 4548-4) DON (test code = DON) %A1C (NGSP) Interpretation (ADA)4.8-5.6 ? ? Normal or (Non-Diabetic Range)5.7-6.4 ? ? Increased Risk (Pre-Diabetic)>6.5 ?Diabetes Indicated Lab Interpretation Normal (test code = 48728-6) [facility] WITH [id number] 16:58:00 Test Item Value Reference Range Interpretation Comments WBC (test code = See_Comment [Automated 3690-2) message] The sy stem which generated this result transmitted reference range : 4.20 - 10.70 10*3/?L. The reference range was not used to interpret this result as normal/abnormal . RBC (test code = See_Comment [Automated 749-8) message] The sy stem which generated this result transmitted reference range : 4.26 - 5.52 10*6/?L. The reference range was not used to interpret this result as normal/abnormal . HGB (test code = 15.0 g/dL 12.2-16.4 718-7) HCT (test code = 45.5 % 38.4-49.3 4544-3) MCV (test code = 91.4 fL 81.7-95.6 787-2) MCH (test code = 30.1 pg 26.1-32.7 785-6) MCHC (test code = 33.0 g/dL 31.2-35 786-4) RDW-SD (test code = 38.3 fL 38.5-51.6 L 26772-3) RDW-CV (test code = 11.5 % 12.1-15.4 L 788-0) PLT (test code = See_Comment [Automated 777-3) message] The sy stem which generated this result transmitted reference range : 150 - 328 10*3/ ?L. The reference r [place] was not used to interpret this result as normal/abnormal . MPV (test code = 10.9 fL 9.8-13 05965-2) NRBC/100 WBC (test See_Comment [Automat ed code = 4081010737) message] The system which generated this result transmitted reference range : 0.0 - 10.0 /100 WBCs. The refer ence range was not u sed to interpret th is result as normal/abnormal . NRBC x10^3 (test code <0.01 See_Comment [Auto mated = 4060291796) message] The s ystem which generated this result transmitted reference range : 10*3/?L. The reference range was not used to interpret this result as normal/abnormal . GRAN MAT (NEUT) % 68.6 % (test code = 770-8) IMM GRAN % (test code 0.30 % = 7349423753) LYMPH % (test code = 21.7 % 736-9) MONO % (test code = 7.3 % 5905-5) EOS % (test code = 1.7 % 713-8) BASO % (test code = 0.4 % 706-2) GRAN MAT x10^3(ANC) 4.96 10*3/uL 1.99-6.95 (test code = 0827546962) IMM GRAN x10^3 (test <0.03 0-0.06 code = 1319805683) LYMPH x10^3 (test code 1.57 10*3/uL 1.09-3.23 = 731-0) MONO x10^3 (test code 0.53 10*3/uL 0.36-1.02 = 742-7) EOS x10^3 (test code = 0.12 10*3/uL 0.06-0.53 711-2) BASO x10^3 (test code 0.03 10*3/uL 0.01-0.09 = 704-7) Lab Interpretation Abnormal (test code = 59453-8) [facility] WITH [id number] 16:58:00 Test Item Value Reference Range Interpretation Comments WBC (test code = See_Comment [Automated 6690-2) message] The sy stem which generated this result transmitted reference range : 4.20 - 10.70 10*3/?L. The reference range was not used to interpret this result as normal/abnormal . RBC (test code = See_Comment [Automated 789-8) message] The sy stem which generated this result transmitted reference range : 4.26 - 5.52 10*6/?L. The reference range was not used to interpret this result as normal/abnormal . HGB (test code = 15.0 g/dL 12.2-16.4 718-7) HCT (test code = 45.5 % 38.4-49.3 4544-3) MCV (test code = 91.4 fL 81.7-95.6 787-2) MCH (test code = 30.1 pg 26.1-32.7 785-6) MCHC (test code = 33.0 g/dL 31.2-35 786-4) RDW-SD (test code = 38.3 fL 38.5-51.6 L 37636-2) RDW-CV (test code = 11.5 % 12.1-15.4 L 788-0) PLT (test code = See_Comment [Automated 777-3) message] The sy stem which generated this result transmitted reference range : 150 - 328 10*3/ ?L. The reference r [place] was not used to interpret this result as normal/abnormal . MPV (test code = 10.9 fL 9.8-13 49106-0) NRBC/100 WBC (test See_Comment [Automat ed code = 9985142160) message] The system which generated this result transmitted reference range : 0.0 - 10.0 /100 WBCs. The refer ence range was not u sed to interpret th is result as normal/abnormal . NRBC x10^3 (test code <0.01 See_Comment [Auto mated = 8856420052) message] The s ystem which generated this result transmitted reference range : 10*3/?L. The reference range was not used to interpret this result as normal/abnormal . GRAN MAT (NEUT) % 68.6 % (test code = 770-8) IMM GRAN % (test code 0.30 % = 9154908641) LYMPH % (test code = 21.7 % 736-9) MONO % (test code = 7.3 % 5905-5) EOS % (test code = 1.7 % 713-8) BASO % (test code = 0.4 % 706-2) GRAN MAT x10^3(ANC) 4.96 10*3/uL 1.99-6.95 (test code = 5224128553) IMM GRAN x10^3 (test <0.03 0-0.06 code = 7714573124) LYMPH x10^3 (test code 1.57 10*3/uL 1.09-3.23 = 731-0) MONO x10^3 (test code 0.53 10*3/uL 0.36-1.02 = 742-7) EOS x10^3 (test code = 0.12 10*3/uL 0.06-0.53 711-2) BASO x10^3 (test code 0.03 10*3/uL 0.01-0.09 = 704-7) Lab Interpretation Abnormal (test code = 27954-8) [facility]"
[2022-04-11] MEDS ORDERED: MORPHINE 4 MG/ML SYR ONE (14:36)
[2022-04-11] MEDS ORDERED: CIPROFLOXACIN 400mg IV 400 MG/200 ML BAG IV ONE (14:37)
[2022-04-11] MEDS ORDERED: METRONIDAZOLE 500mg IVPB 500 MG/100 ML BAG IV ONE (14:37)
[2022-04-11 14:40] LABS: Absolute Lymphocytes (CBC) 1.2 K/uL (0.7-4.9); Hematocrit 42.4 % (39.6-49.0); Lymphocytes % 11.9 % (15.3-44.8); MCV 87.9 fL (80-100); MPV 7.9 fL (7.6-11.3); RBC Red Blood Cell Count 4.82 M/uL (4.33-5.43)
[2022-04-11 14:59] LABS: Albumin 3.6 g/dL (3.4-5.0); Bilirubin Total 0.8 mg/dL (0.2-1.0); Potassium 3.8 mmol/L (3.5-5.1); Protein, Total 7.5 g/dL (6.4-8.2)
--- NOTE | 2022-04-11 15:30 | RAD REPORT ---
EXAM DESCRIPTION: CT - Pelvis W/Cont - 04/11/2022 3:10 pm CLINICAL HISTORY: Rectal abscess COMPARISON: None. TECHNIQUE: Computed axial tomography of the pelvis was obtained 100 cc Isovue-300 administered intra venously All CT scans are performed using dose optimization technique as appropriate and may include automated exposure control or mA/KV adjustment according to patient size. FINDINGS: 3 x 1 centimeter low-density fluid collection consistent with abscess lies posterior to th e anus. Mild thickening of the anal wall. No evidence of diverticulitis. No ascites. IMPRESSION: 3 x 1 centimeter perianal abscess
[2022-04-11] MEDS ORDERED: HYDROMORPHONE HCL 1 MG/ML INJ ONE (15:59)
--- NOTE | 2022-04-11 16:04 | EDPHYS ---
Physician Documentation [facility] Name: Lang Oneill Age: 31 yrs Sex: Male : 1990 Arrival Date: 04/11/2022 Time: 13:28 Bed 13 Private MD: ED Physician Jaime Amin HPI: 04/11 16:05 This 31 yrs old Male presents to ER via Ambulatory with complaints of Rectal kdr Abscess. 16:05 On of last week the patient felt pain when sitting down on the toilet. At that kdr time he had a bowel movement without complication. Since then, he has had increasing pain around his rectum. Patient states that yesterday he was in the shower and suddenly felt a sudden burst of fluid running down his buttock and leg. He felt somewhat lightheaded when this happened. He had no other associated symptoms. Since then he has continued to have pain in his rectal and perirectal area. Denies any blood in his stool or black tarry stools. Patient's not had this before. Patient does not appear to be in any acute distress and does not currently require acute intervention. Onset: The symptoms/episode began/occurred 4 day(s) ago. Severity of symptoms: At their worst the symptoms were mild in the emergency department the symptoms are unchanged. The patient has not experienced similar symptoms in the past. The patient has not recently seen a physician. Historical: - Allergies: 13:52 No Known Allergies; ss - Home Meds: 13:52 None [Active]; ss - PMHx: 13:52 None; ss - PSHx: 13:52 None; ss - Immunization history:: Client reports receiving the 2nd dose of the Covid vaccine. - Social history:: Smoking status: Reported history of juuling and/or vaping. ROS: 16:05 Constitutional: Negative for fever, chills, and weight loss, Eyes: Negative for injury, kdr pain, redness, and discharge, Neck: Negative for injury, pain, and swelling, Cardiovascular: Negative for chest pain, palpitations, and edema, Respiratory: Negative for shortness of breath, cough, wheezing, and pleuritic chest pain, Back: Negative for injury and pain, : Negative for injury, bleeding, discharge, and swelling, MS/Extremity: Negative for injury and deformity, Skin: Negative for injury, rash, and discoloration, Neuro: Negative for headache, weakness, numbness, tingling, and seizure activity. Psych: Negative for depression, anxiety, suicide ideation, homicidal ideation, and hallucinations, Allergy/Immunology: Negative for hives, rash, and allergies, Endocrine: Negative for neck swelling, polydipsia, polyuria, polyphagia, and marked weight changes, Hematologic/Lymphatic: Negative for swollen nodes, abnormal bleeding, and unusual bruising. 16:05 Abdomen/GI: Positive for rectal pain, Negative for abdominal cramps, abdominal distension, dysphagia, black/tarry stool, rectal bleeding, bowel incontinence, flatulence. Exam: 16:05 Constitutional: This is a well developed, well nourished patient who is awake, alert, kdr and in no acute distress. Head/Face: Normocephalic, atraumatic. Eyes: Pupils equal round and reactive to light, extra-ocular motions intact. Lids and lashes normal. Conjunctiva and sclera are non-icteric and not injected. Cornea within normal limits. Periorbital areas with no swelling, redness, or edema. Neck: Trachea midline, no thyromegaly or masses palpated, and no cervical lymphadenopathy. Supple, full range of motion without nuchal rigidity, or vertebral point tenderness. No Meningismus. Chest/axilla: Normal chest wall appearance and motion. Nontender with no deformity. No lesions are appreciated. Cardiovascular: Regular rate and rhythm with a normal S1 and S2. No gallops, murmurs, or rubs. Normal PMI, no JVD. No pulse deficits. Respiratory: Lungs have equal breath sounds bilaterally, clear to auscultation and percussion. No rales, rhonchi or wheezes noted. No increased work of breathing, no retractions or nasal flaring. Back: No spinal tenderness. No costovertebral tenderness. Full range of motion. Skin: Warm, dry with normal turgor. Normal color with no rashes, no lesions, and no evidence of cellulitis. MS/ Extremity: Pulses equal, no cyanosis. Neurovascular intact. Full, normal range of motion. Neuro: Awake and alert, GCS 15, oriented to person, place, time, and situation. Cranial nerves II-XII grossly intact. Motor strength 5/5 in all extremities. Sensory grossly intact. Cerebellar exam normal. Normal gait. Psych: Awake, alert, with orientation to person, place and time. Behavior, mood, and affect are within normal limits. 16:05 Abdomen/GI: Inspection: obese Bowel sounds: normal, Palpation: soft, nontender, Rectal exam: hemorrhoid(s), are not appreciated, swelling, that is mild, that is moderate, tenderness, that is mild, that is moderate. Vital Signs: 13:46 BP 119 / 62; Pulse 79; Resp 17; Temp 98.7(O); Pulse Ox 99% on R/A; Weight 102.06 kg; ss Height 5 ft. 11 in. (180.34 cm); Pain 6/10; 14:00 BP 103 / 64; Pulse 100; Resp 18 S; Pulse Ox 98% on R/A; Pain 7/10; kc6 15:00 BP 139 / 98; Pulse 95; Resp 18 S; Pulse Ox 100% on R/A; kc6 16:00 BP 114 / 82; Pulse 95; Resp 17 S; Pulse Ox 100% on R/A; kc6 17:00 BP 111 / 66; Pulse 99; Resp 18 S; Pulse Ox 100% on R/A; kc6 13:46 Body Mass Index 31.38 (102.06 kg, 180.34 cm) ss MDM: 16:04 Patient medically screened. kdr 16:04 Data reviewed: vital signs, nurses notes, lab test result(s), radiologic studies. kdr Counseling: I had a detailed discussion with the patient and/or guardian regarding: the historical points, exam findings, and any diagnostic results supporting the discharge/admit diagnosis, lab results, radiology results, the need for further work-up and treatment in the hospital. Physician consultation: Saravanan Menendez MD was called at 16:05, was contacted at 16:05, regarding consult, patient's condition, need to evaluate the patient as soon as possible, and will see patient in inpatient room, tomorrow. 04/11 14:15 Order name: CBC with Diff; Complete Time: 15:31 kdr 04/11 14:15 Order name: CMP; Complete Time: 15:31 kdr 04/11 14:15 Order name: CT Pelvis w cont; Complete Time: 15:31 kdr 04/11 17:21 Order name: SARS-COV-2 Antigen Rapid bd 04/11 17:41 Order name: SARS-COV-2 Antigen Rapid EDMS Administered Medications: 14:52 Drug: morphine 4 mg Route: IVP; Infused Over: 4 mins; Site: right forearm; kc6 15:52 Follow up: Response: No adverse reaction; Pain is unchanged, physician notified; RASS: kc6 Alert and Calm (0) 14:53 Drug: Cipro (ciprofloxacin) 400 mg Volume: 200 ml; Route: IVPB; Infused Over: 60 mins; kc6 Site: right forearm; 15:53 Follow up: Response: No adverse reaction; IV Status: Completed infusion kc6 14:53 Drug: metroNIDAZOLE 500 mg Volume: 100 ml; Route: IVPB; Infused Over: 30 mins; Site: kc6 right forearm; 15:53 Follow up: Response: No adverse reaction; IV Status: Completed infusion kc6 16:04 Drug: Dilaudid (HYDROmorphone) 1 mg Route: IVP; Site: right forearm; kc6 17:04 Follow up: Response: No adverse reaction; Pain is decreased; RASS: Alert and Calm (0) kc6 Disposition Summary: 04/11/22 16:04 Hospitalization Ordered Hospitalization Status: Observation kdr Provider: Kenneth Davis Location: Telemetry/MedSurg (observation) kdr Condition: Fair kdr Problem: new kdr Symptoms: have improved kdr Bed/Room Type: Standard kdr Room Assignment: 411(04/11/22 17:58) dw Diagnosis - Perianal abscess kdr Forms: - Medication Reconciliation Form kdr - SBAR form kdr Signatures: Dispatcher [employer] EDMS Ann Evans RN RN dw Rittger, Kevin, MD MD kdr Josephine Pulido RN RN Alma Nieto RN RN kc6 Corrections: (The following items were deleted from the chart) 17:58 16:04 kdr dw
--- NOTE | 2022-04-11 16:04 | ER ---
Nurse's Notes [facility] Name: Lang Oneill Age: 31 yrs Sex: Male : 1990 Arrival Date: 04/11/2022 Time: 13:28 Bed 13 Private MD: Diagnosis: Perianal abscess Presentation: 04/11 13:46 Chief complaint: Patient states: Abscess to rectal area that began on Sunday. Pt ss reports that this morning around 0600 he felt a pop, felt drainage and had some relief following that. Denies fever. Coronavirus screen: Client denies travel out of the [place] in the last 14 days. Ebola Screen: Patient denies exposure to infectious person. Patient denies travel to an Ebola-affected area in the 21 days before illness onset. Initial Sepsis Screen: Does the patient meet any 2 criteria? No. Patient's initial sepsis screen is negative. Does the patient have a suspected source of infection? No. Patient's initial sepsis screen is negative. Risk Assessment: Do you want to hurt yourself or someone else? Patient reports no desire to harm self or others. Onset of symptoms was April 08, 2022. 13:46 Method Of Arrival: Ambulatory ss 13:46 Acuity: SUSIE 3 ss Historical: - Allergies: 13:52 No Known Allergies; ss - Home Meds: 13:52 None [Active]; ss - PMHx: 13:52 None; ss - PSHx: 13:52 None; ss - Immunization history:: Client reports receiving the 2nd dose of the Covid vaccine. - Social history:: Smoking status: Reported history of juuling and/or vaping. Screenin:06 Abuse screen: Denies threats or abuse. Denies injuries from another. Nutritional kc6 screening: No deficits noted. Tuberculosis screening: No symptoms or risk factors identified. Fall Risk None identified. Assessment: 14:00 General: Appears in no apparent distress. uncomfortable, Behavior is calm, cooperative, kc6 appropriate for age. Pain: Complains of pain in rectum Pain does not radiate. Pain currently is 7 out of 10 on a pain scale. Quality of pain is described as sharp, Pain began 2-3 days ago. Is continuous, Alleviated by rest, Aggravated by increased activity, repositioning, Noted to be grimacing, Also complains of no other associated symptoms. Neuro: Seth Agitation-Sedation Scale (RASS): 0 - Alert and Calm Level of Consciousness is awake, alert, obeys commands, Oriented to person, place, time, situation, Appropriate for age. Cardiovascular: Heart tones S1 S2 present Capillary refill < 3 seconds. Respiratory: Airway is patent Trachea midline Respiratory effort is even, unlabored, Respiratory pattern is regular, symmetrical, Breath sounds are clear bilaterally. GI: Reports constipation. : No signs and/or symptoms were reported regarding the genitourinary system. EENT: No signs and/or symptoms were reported regarding the EENT system. Derm: No signs and/or symptoms reported regarding the dermatologic system. Skin is intact, Skin is pink, warm \T\ dry. Musculoskeletal: Circulation, motion, and sensation intact. Capillary refill < 3 seconds, Range of motion: intact in all extremities. 15:00 Reassessment: Patient appears in no apparent distress at this time. No changes from kc6 previously documented assessment. Patient and/or family updated on plan of care and expected duration. Pain level reassessed. Patient is alert, oriented x 3, equal unlabored respirations, skin warm/dry/pink. 16:00 Reassessment: Patient appears in no apparent distress at this time. No changes from kc6 previously documented assessment. Patient and/or family updated on plan of care and expected duration. Pain level reassessed. Patient is alert, oriented x 3, equal unlabored respirations, skin warm/dry/pink. 17:00 Reassessment: Patient appears in no apparent distress at this time. No changes from kc6 previously documented assessment. Patient and/or family updated on plan of care and expected duration. Pain level reassessed. Patient is alert, oriented x 3, equal unlabored respirations, skin warm/dry/pink. Vital Signs: 13:46 BP 119 / 62; Pulse 79; Resp 17; Temp 98.7(O); Pulse Ox 99% on R/A; Weight 102.06 kg; ss Height 5 ft. 11 in. (180.34 cm); Pain 6/10; 14:00 BP 103 / 64; Pulse 100; Resp 18 S; Pulse Ox 98% on R/A; Pain 7/10; kc6 15:00 BP 139 / 98; Pulse 95; Resp 18 S; Pulse Ox 100% on R/A; kc6 16:00 BP 114 / 82; Pulse 95; Resp 17 S; Pulse Ox 100% on R/A; kc6 17:00 BP 111 / 66; Pulse 99; Resp 18 S; Pulse Ox 100% on R/A; kc6 13:46 Body Mass Index 31.38 (102.06 kg, 180.34 cm) ED Course: 13:28 Patient arrived in ED. rg4 13:35 Jaime Amin MD is Attending Physician. kdr 13:50 Triage completed. ss 13:52 Arm band placed on right wrist. ss 14:16 Alma Nieto, NYLA is Primary Nurse. kc6 14:32 CMP Sent. kc6 14:32 CBC with Diff Sent. kc6 14:32 Inserted saline lock: 20 gauge in right forearm, using aseptic technique. Blood kc6 collected. 15:12 CT Pelvis w cont In Process Unspecified. EDMS 16:03 Kenneth Davis MD is Hospitalizing Provider. kdr 17:29 SARS-COV-2 Antigen Rapid Sent. kc6 18:06 Patient has correct armband on for positive identification. Placed in gown. Bed in low kc6 position. Call light in reach. Side rails up X2. Adult w/ patient. 18:06 No provider procedures requiring assistance completed. Patient admitted, IV remains in kc6 place. Administered Medications: 14:52 Drug: morphine 4 mg Route: IVP; Infused Over: 4 mins; Site: right forearm; kc6 15:52 Follow up: Response: No adverse reaction; Pain is unchanged, physician notified; RASS: kc6 Alert and Calm (0) 14:53 Drug: Cipro (ciprofloxacin) 400 mg Volume: 200 ml; Route: IVPB; Infused Over: 60 mins; kc6 Site: right forearm; 15:53 Follow up: Response: No adverse reaction; IV Status: Completed infusion kc6 14:53 Drug: metroNIDAZOLE 500 mg Volume: 100 ml; Route: IVPB; Infused Over: 30 mins; Site: kc6 right forearm; 15:53 Follow up: Response: No adverse reaction; IV Status: Completed infusion kc6 16:04 Drug: Dilaudid (HYDROmorphone) 1 mg Route: IVP; Site: right forearm; kc6 17:04 Follow up: Response: No adverse reaction; Pain is decreased; RASS: Alert and Calm (0) kc6 Medication: 18:07 VIS not applicable for this client. kc6 Outcome: 16:04 Decision to Hospitalize by Provider. kdr 18:06 Admitted to Med/surg accompanied by tech, via wheelchair, room 411, with chart. kc6 18:06 Condition: stable 18:06 Instructed on the need for admit. 20:51 Patient left the ED. shantel Signatures: Dispatcher [employer] EDMS Jaime Amin MD MD kdr Ballard, Brenda RN RN bb Josephine Pulido RN RN Alba Gonzalez 4 Alma Nieto RN RN kc6
[2022-04-11] MEDS ORDERED: ACETAMINOPHEN 325 MG TABLET PO PRN (17:16)
[2022-04-11] MEDS ORDERED: MORPHINE 4 MG/ML SYR IV PRN (17:17)
[2022-04-11] MEDS ORDERED: ONDANSETRON 4 MG/2 ML VIAL IV PRN (17:24)
--- NOTE | 2022-04-11 17:28 | P.HP ---
Certification for Inpatient Patient admitted to: Observation With expected LOS: <2 Midnights Patient will require the following post-hospital care: None Practitioner: I am a practitioner with admitting privileges, knowledge of patient current condition, hospital course, and medical plan of care. Services: Services provided to patient in accordance with Admission requirements found in Title 42 Section 412.3 of the Code of Federal Regulations Patient History Date of Service: 04/11/22 Reason for admission: Perianal abscess History of Present Illness: Patient is a 31-year-old male with a past medical history significant for obesity who presents with complaint of right buttocks induration\abscess. Patient reported that abscess is located on the right buttocks within the intergluteal cleft. Patient reported that he noticed an induration within the intergluteal cleft when he started having pain 2 days ago. Patient indicated that induration became more swollen and more painful over time. Patient rated pain today as 10/10 in severity and described pain as sharp in quality. Patient reported that his last bowel movement was 3 days ago. Patient reported that he could not have a bowel movement due to severe pain. Patient denies any other signs or symptoms. Symptoms are aggravated by movement, attempts at having bowel movement and relieved by mildly by pain medication. Patient decided to present to the hospital due to worsening symptoms. Allergies No Known Allergies Allergy (Unverified 01/10/12 14:05) - Past Medical/Surgical History -: Obesity Past Surgical History: Reviewed- Non-Contributory - Family History Family History: Reviewed- Non-Contributory - Social History Smoking Status: Current some day smoker (Patient reports that he vapes.) Alcohol use: No CD- Drugs: No Caffeine use: Yes Place of Residence: Home Review of Systems General: Unremarkable Eyes: Unremarkable ENT: Unremarkable Respiratory: Unremarkable Cardiovascular: As per HPI Gastrointestinal: Other (Right buttocks pain\swelling ) Genitourinary: Unremarkable Musculoskeletal: Unremarkable Integumentary: Unremarkable Neurological: Unremarkable Lymphatics: Unremarkable Physical Examination - Physical Exam General: Alert, In no apparent distress, Oriented x3, Cooperative HEENT: Atraumatic, PERRLA, Mucous membr. moist/pink, EOMI, Sclerae nonicteric Neck: Supple, 2+ carotid pulse no bruit, No LAD, Without JVD or thyroid abnormality Respiratory: Clear to auscultation bilaterally, Normal air movement Cardiovascular: No edema, Regular rate/rhythm, Normal S1 S2 Capillary refill: >2 Seconds Gastrointestinal: Normal bowel sounds, Other (Right buttocks swelling ) Musculoskeletal: No tenderness Integumentary: No rashes, Tenderness/swelling (In right buttocks ) Neurological: Normal speech, Normal strength at 5/5 x4 extr, Normal tone, Normal affect Lymphatics: No axilla or inguinal lymphadenopathy - Studies Laboratory Data (last 24 hrs) 04/11/22 14:31: Sodium 136, Potassium 3.8, BUN 15, Creatinine 1.01, Glucose 150 H, Total Bilirubin 0.8, AST 23, ALT 71, Alkaline Phosphatase 57 04/11/22 14:31: WBC 10.20, Hgb 14.4, Hct 42.4, Plt Count 231 Assessment and Plan - Plan --- Perrianal abscess. Noted on CT imaging. Surgeon consulted. Recommended keeping patient NPO. Patient placed on antibiotics. Further management per surgeon. --Acute pain. We will manage pain with current pain medication regimen. --Class I obesity. Likely secondary to excess calories intake. Patient counseled on weight reduction, diet and excise therapy. --Elevated blood pressure without diagnosis of hypertension. We will manage BP with hydralazine as needed. --DVT prophylaxis with SCDs. Discharge Plan: Home - Advance Directives Does patient have a Living Will: No Does patient have a Durable POA for Healthcare: No - Code Status/Comfort Care Code Status Assessed: Yes Physician Review: Patient Assessed, Agree with Above Assessment and Plan Critical Care: No
[2022-04-11 17:40] LABS: SARS-CoV-2 Antigen Rapid Res Negative (Negative)
[2022-04-11] MEDS ORDERED: HYDRALAZINE HCL 20 MG/ML VIAL IV PRN (18:58)
[2022-04-11 21:45] VITALS: BMI 35.5
[2022-04-11] MEDS: HYDROMORPHONE HCL 1 MG/ML INJ IV PRN (22:32)
[2022-04-11] MEDS: PIPER TAZO 3.375 GM in NA CHLORIDE 0.9% 100 ML IV SCH (22:33)
[2022-04-12] MEDS: PIPER TAZO 3.375 GM in NA CHLORIDE 0.9% 100 ML IV SCH ×2 (01:00→07:52)
[2022-04-12] MEDS: HYDROMORPHONE HCL 1 MG/ML INJ IV PRN ×2 (02:48→07:51)
[2022-04-12 05:08] LABS: Albumin 3.3 g/dL (3.4-5.0); Potassium 3.5 mmol/L (3.5-5.1)
[2022-04-12] MEDS ORDERED: KCL 20 MEQ/100 mL IVPB 20 MEQ/100 ML BAG IV SCH (07:00)
[2022-04-12] MEDS ORDERED: BUPIVACAINE 0.25% PF 10 ML VIAL ONE (07:37)
[2022-04-12] MEDS ORDERED: INFLUENZA VACCINE (for 6+ mo) 0.5 ML DOSE IMVAC ONE (08:00)
[2022-04-12] MEDS ORDERED: Ringers Lactate 1,000 ML IV ONE (08:29)
[2022-04-12] MEDS ORDERED: FENTANYL CITR 100 MCG/2 ML ONE (08:43)
[2022-04-12] MEDS ORDERED: propofoL 200 MG/20 ML VIAL IV ONE (08:43)
[2022-04-12] MEDS ORDERED: ONDANSETRON 4 MG/2 ML VIAL ONE (08:43)
[2022-04-12] MEDS ORDERED: LIDOCAINE 2% MPF 5 ML VIAL ONE (08:43)
[2022-04-12] MEDS ORDERED: MIDAZOLAM HCL 2 MG/2 ML INJ ONE (08:43)
[2022-04-12] MEDS ORDERED: KETOROLAC 30 MG/ML INJ ONE (08:59)
[2022-04-12] MEDS ORDERED: dexAMETHasone 10 MG/ML VIAL ONE (08:59)
--- NOTE | 2022-04-12 09:21 | P.OP ---
Preoperative diagnosis: Perirectal Abscess Postoperative diagnosis: Perirectal Abscess Primary procedure: Incision, Drainage, Debridement of perirectal abscess Anesthesia: GETA + Local Estimated blood loss: <25cc Specimen: cultures, debridement tissue Findings: multiloculated abscess near bertha cleft Complications: None Transferred to: Recovery Room Condition: Good
[2022-04-12 10:08] VITALS: O2SAT 96
[2022-04-12] MEDS ORDERED: POTASSIUM CL SA 10 MEQ TAB PO ONE (10:44)
--- NOTE | 2022-04-12 11:16 | OP ---
Date of Procedure: 04/12/2022 Surgeon: Saravanan Menendez MD, Preoperative Diagnosis: Perirectal abscess. Postoperative Diagnosis: Perirectal abscess. Procedure Performed: Incision, drainage and debridement of perirectal abscess. Anesthesia: General endotracheal plus local with 0.25% Marcaine some. Estimated Blood Loss: Less than 25 cc. Specimen: Culture sent for aerobic, anaerobic speciation and debridement tissue. Findings: Multiloculated abscess approximately 3.5 cm by 2 cm x 2 cm near the bertha cleft and interg luteal fold. Complications: None. Disposition: The patient was transferred to the recovery room in good condition. Procedure In Detail: After informed consent was obtained, the patient was brought to the operating r oom, prepped and draped in the usual sterile fashion after adequate anesthesia was achieved. A curvi linear incision in elliptical fashion was made around the area of obvious fluctuance with a 15-blade down to subcutaneous tissues. Electrocautery was used to dissect down the subcutaneous fat and up to the fascia overlying the muscle. I debrided an area of obvious abscess. Cultures sent both aerobic and anaerobic speciation at this time. All necrotic tissue was removed at this point. The area was digitized, found to be multiloculated without any extension into the perirectal area. It extended m ore toward the midline. After the tissue was cleansed off, it was curetted. Hemostasis was achieved with electrocautery. The area was copiously irrigated and then packed with sterile dressing. The pa tient tolerated the procedure well without evidence of complication and transferred to PACU in good c ondition. All counts were correct at the end of the case. DEJON/MYLENE Voice ID: [id number] Report ID: [id number]
--- NOTE | 2022-04-12 11:16 | CON ---
Date of Consultation: 04/12/2022 Brief History Of Present Illness: The patient is a 31-year-old male with past medical history for ob esity, who presents with complaints of right buttock induration and abscess, started draining spontan eously several days ago, but got significantly worse. It is near the intergluteal cleft. He had the swelling and pain significantly increased approximately 2 days ago and as such, he came to the [facility] ency room with the above-stated complaints. Past Medical History: Negative. Past Surgical History: Denies. Allergies: NO KNOWN DRUG ALLERGIES. Medications: None. Social History: He stopped smoking cigarettes 6 months ago, but he continues to have vape. He drink s alcohol recreationally. Denies recreational drug use. 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 Review of Systems: Ten-point review of systems other than HPI, denies. Physical Examination: General: At the time of my examination; he is awake, alert, oriented. Psychiatric: Appropriate, conversive. HEENT: Normocephalic. Sclerae anicteric. Mucous membranes moist. Oropharynx clear. Neck: Supple without JVD. Chest: Normal expansion and excursion. Cardiovascular: Regular rate and rhythm. Pulmonary: Clear to auscultation bilaterally. Abdomen: Soft, nontender, nondistended. No rebound or guarding. No focal peritonitis. Focused exa mination of perianal area shows a right indurated area with significant abscess consistent with a per irectal abscess on the right gluteal cleft on the anterior gluteal plane approximately 3 cm in size, tender to palpation with surrounding cellulitis. Extremities: No clubbing, cyanosis, or edema. Skin: Warm, dry. Laboratory Data: Reveals a white blood cell count of 10.2, hemoglobin 14.4, hematocrit of 42.4, plat elet count is 231, neutrophils 79%. His sodium is 134, potassium 3.5, chloride 101, carbon dioxide 2 9, BUN 16, creatinine 0.9, glucose 113, total bilirubin 1.0, AST 18, ALT 57, alkaline phosphatase 53. COVID was negative. He had a CT scan performed of the abdomen and pelvis, officially read as 3.1 c m perianal abscess/posterior to the anus, mild thickening of the anal wall. No evidence of diverticu litis. No ascites. Assessment And Plan: This is a 31-year-old male, who presents signs and symptoms of perianal abscess /perirectal abscess. 1.IV fluid hydration. 2.Antibiotic coverage. 3.I have explained the risks, benefits, and alternatives of incision, drainage, debridement of the p erianal abscess including, but not limited to bleeding, infection, damage to surrounding tissue, need for further operation and procedure. The patient agreed to proceed as indicated. DEJON/MYLENE Voice ID: [id number] Report ID: [id number]
[2022-04-12 12:06] VITALS: BP 92/52; TEMP 96.8
--- NOTE | 2022-04-12 12:10 | P.DS ---
Admission Date: 04/11/22 Discharge Date: 04/12/22 Disposition: ROUTINE DISCHARGE Discharge Condition: GOOD Reason for Admission: Perianal abscess Consultations: General Surgery - Dr. Cordoba Brief History of Present Illness: 31-year-old male with a past medical history significant for obesity who presents with complaint of right buttocks induration\\abscess. Patient reported that abscess is located on the right buttocks within the intergluteal cleft. Patient reported that he noticed an induration within the intergluteal cleft when he started having pain 2 days ago. Patient indicated that induration became more swollen and more painful over time. Patient rated pain today as 10/10 in severity and described pain as sharp in quality. Patient reported that his last bowel movement was 3 days ago. Patient reported that he could not have a bowel movement due to severe pain. Patient denies any other signs or symptoms. Symptoms are aggravated by movement, attempts at having bowel movement and relieved by mildly by pain medication. Patient decided to present to the hospital due to worsening symptoms. Hospital Course: Problem List Perirecal Abscess Obese Patient presented with a mohit-rectal abscess. Dr. Cordoba was consulted and patient was taken to OR for I&D. Patient towerent issa velez and rupali soto Vital Signs/Physical Exam: Temp Pulse Resp BP Pulse Ox 96.8 F 68 16 92/52 L 97 04/12/22 12:00 04/12/22 12:00 04/12/22 12:00 04/12/22 12:00 04/12/22 12:00 General: Alert, In no apparent distress, Oriented x3 HEENT: EOMI, Sclerae nonicteric Neck: Supple, No LAD Respiratory: Clear to auscultation bilaterally, Normal air movement Cardiovascular: No edema, Regular rate/rhythm Gastrointestinal: Soft and benign, Non-distended, No tenderness Musculoskeletal: No contractures, No tenderness Integumentary: No rashes, No significant lesion Neurological: Normal speech, Normal strength at 5/5 x4 extr, Normal affect Laboratory Data at Discharge: WBC 10.20 K/uL (4.3-10.9) 04/11/22 14:31 Hgb 14.4 g/dL (13.6-17.9) 04/11/22 14:31 Hct 42.4 % (39.6-49.0) 04/11/22 14:31 Plt Count 231 K/uL (152-406) 04/11/22 14:31 Sodium 134 mmol/L (136-145) L 04/12/22 04:04 Potassium 3.5 mmol/L (3.5-5.1) 04/12/22 04:04 BUN 16 mg/dL (7-18) 04/12/22 04:04 Creatinine 0.94 mg/dL (0.55-1.3) 04/12/22 04:04 Glucose 113 mg/dL (74-106) H 04/12/22 04:04 Total Bilirubin 1.0 mg/dL (0.2-1.0) 04/12/22 04:04 AST 18 U/L (15-37) 04/12/22 04:04 ALT 57 U/L (12-78) 04/12/22 04:04 Alkaline Phosphatase 53 U/L (45-117) 04/12/22 04:04 Home Medications: Amox/Clavulanate [Augmentin 875-125 Tab] 1 tab PO BID 7 Days #14 tab 04/12/22 New Medications: Amox/Clavulanate [Augmentin 875-125 Tab] 1 tab PO BID 7 Days #14 tab Physician Discharge Instructions: PROBLEM: (list out Acute Problems for the Current visit) Perianal Abscess GOAL: Clear understanding of disease process INSTRUCTIONS: daily packing with 1/2" packing with vashe damp to dry Follow up with PCP in 1 to 2 weeks Follow up with Dr. Cordoba in office in 2-3 days Diet: Regular Activity: Ad shirley Follow up with a General Surgeon : VLADIMIR CORDOBA MD [address] [place] [id number] = Diet: Regular Activity: Ad shirley Followup: Vladimir Cordoba MD [ACTIVE - CAN ADMIT] - NONE,NONE [Primary Care Provider] - Time spent managing pt's care (in minutes): 45
== END 2022-04-12 13:08 | disposition home or self-care (01) | DRG 346 ==
LOC: ER 13:25 → ERHOLD 17:14 → 4TH 18:22 → OBSVTOIN 21:54
PROVIDERS: ADMIT Hospitalist; ATTEND Hospitalist
PROC: 0D9P0ZZ Drainage of Rectum, Open Approach (ICD-10-PCS; principal; 2022-04-11)
DX: K61.1 Rectal abscess (principal); R03.0 Elevated blood-pressure reading, without diagnosis of hypertension; E66.9 Obesity, unspecified; Z68.35 Body mass index [BMI] 35.0-35.9, adult; Z71.3 Dietary counseling and surveillance; F17.290 Nicotine dependence, other tobacco product, uncomplicated; Z20.822 Contact with and (suspected) exposure to COVID-19
CPT/HCPCS: 36415; 72193; 80053; 85025; 87040; 87070; 87075; 87077; 87186; 87205; 87811; 88304; 96365; 96368; 96375; 99285; G0378; J0744; J1100; J1170; J2001; J2250; J2405; J2543; J2704; J3010; J7120; Q9967

== ENCOUNTER 2023-01-22 09:01 | Emergency (ER) | payer SELFPAY ==
--- OUTSIDE RECORDS SUMMARY | 2023-01-22 09:04 | XMS REPORT | Continuity of Care Document ---
:1990 Author Organization [facility] t Address [address] [facility] [address] [place] [address] Care Team Providers Name Role Phone Julia Raya Attending Clinician Unavailable Pob1, Acute Care Clinic Attending Clinician Unavailable Jovita Loomis Attending Clinician Problems Condition Condition Condition Status Onset Resolution Last Treating Co mments Source Name Details Category Date Date Treatment Clinician Date Epigastric Epigastric Disease Active 2020-0 U nivers discomfort discomfort 7-15 it y of 00:00: [address] Belching Belching Disease Active 2020-0 Unive rs 7-15 ity of 00:00: [address] Allergies, Adverse Reactions, Alerts Allergy Allergy Status Severity Reaction(s) Onset Inactive Treating Comm ents Source Name Type Date Date Clinician NO KNOWN Drug Active Univers ALLERGIE Class ity of S [facility] Social History Social Habit Start Date Stop Date Quantity Comments Source History of Cigarette Smoker Universi ty of tobacco use [facility] Sex Assigned At Universit y [facility] Exposure to Yes University SARS-CoV-2 [facility] (event) [place] Alcohol intake 2019-11-19 2019-11-19 University of 00:00:00 00:00:00 [facility] Alcohol Comment 2019-11-19 2019-11-19 occasional Universit y of 00:00:00 00:00:00 [facility] Smoking Status Start Date Stop Date Source Current some day smoker 2019-11-19 00:00:00 Univ ersity of [facility] Medications Ordered Filled Start Stop Current Ordering Indication Dosage Frequency Signature Comments Components Source Medication Medication Date Date Medication? Clinician (SIG) Name Name Omeprazole 2019-0 Yes [id number] 20mg Take 1 Univers 20 mg 7-15 tablet by ity of tablet 00:00: mouth [place] 00 daily. Medical Branch Omeprazole 2019-0 Yes [id number] 20mg Take 1 Univers 20 mg 7-15 tablet by ity of tablet 00:00: mouth [place] 00 daily. Medical Branch Omeprazole 2019- Yes [id number] 20mg Take 1 Univers 20 mg 7-15 tablet by ity of tablet 00:00: mouth [place] 00 daily. Medical Branch busPIRone 5 2020- No [id number] 5mg Take 1 Univers mg tablet 7-15 08-15 tablet by ity of 00:00: 04:59 mouth 2 [place] 00 :00 (two) Medical times Branch daily for 30 days. busPIRone 5 2019- 2020- No [id number] 5mg Take 1 Univers mg tablet 7-15 08-15 tablet by ity of 00:00: 04:59 mouth 2 [place] 00 :00 (two) Medical times [place] daily for 30 days. busPIRone 5 2019- No [id number] 5mg Take 1 Univers mg tablet 7-15 08-15 tablet by ity of 00:00: 04:59 mouth 2 [place] 00 :00 (two) Medical times Branch daily for 30 days. Vital Signs Vital Name Observation Time Observation Value Comments Source Systolic blood 2019-11-19 13:44:00 123 [facility]Hg[facility] Diastolic blood 2019-11-19 13:44:00 86 mm[Hg] [facility] Heart rate 2019-11-19 13:44:00 72 /min [facility] Body temperature 2019-11-19 13:44:00 37 Sherri [facility] Respiratory rate 2019-11-19 13:44:00 18 /min [facility] Body height 2019-11-19 13:44:00 182.9 cm [facility] Body weight 2019-11-19 13:44:00 112.492 kg [facility] BMI 2019-11-19 13:44:00 33.63 kg/m2 [facility] Oxygen saturation in 2019-11-19 13:44:00 98 /min [facility] blood by [facility] Pulse oximetry Branch Systolic blood 2019-11-19 13:44:00 123 mm[Hg] Univer sity of pressure [facility] Diastolic blood 2019-11-19 13:44:00 86 mm[Hg] Unive rsity of pressure [facility] Heart rate 2019-11-19 13:44:00 72 /min [facility] Body temperature 2019-11-19 13:44:00 37 Sherri [facility] Res[facility] 2019-11-19 13:44:00 18 /min [facility] Body height 2019-11-19 13:44:00 182.9 cm Universi ty [facility] Body weight 2019-11-19 13:44:00 112.492 kg [facility] BMI 2019-11-19 13:44:00 33.63 kg/m2 [facility] Oxygen saturation in 2019-11-19 13:44:00 98 /min [facility] blood by [facility] Pulse oximetry [place] Procedures Procedure Date / Time Performing Clinician Source Performed LIPASE 2019-11-19 14:37:00 Barbi Sorto [facility] THYROID STIMULATING 2019-11-19 14:37:00 Barbi Sorto [facility] HORMONE [facility] COMP. METABOLIC PANEL 2019-11-19 14:37:00 Barbi Sorto [facility] ([id number]) [facility] CBC WITH DIFFERENTIAL 2019-11-19 14:37:00 Barbi Sorto [facility] GLYCOSYLATED HEMOGLOBIN 2019-11-19 14:37:00 Barbi Sorto [facility] (A1C) [facility] Encounters Start End Encounter Admission Attending Care Care Encounter Source Date/Time Date/Time Type Type Clinicians Facility Department ID 2019-11-20 2019-11-20 Patient Elver GAMANOJ [id number] Univers 00:00:00 00:00:00 Outreach Julia Sapp [id number] ity corrie AmaroSeanor [id number] Jayashree Zamora [phone] [place] [address] Branch Building 2019-11-20 2019-11-20 Patient CHICHO Raya [id number] 00:00:00 00:00:00 Outreach Julia N [place] [id number] Sean[place] [id number] Professio [phone] [address] 2019-11-19 2019-11-19 Urgent Pob1, Acute Care [facility] 1. [id number] Univers 08:37:42 09:52:09 Care [facility] [id number] ity [facility] [id number] Juan Carlos as Professio [phone] Ga dical [address] Office Building One 2019-11-19 2019-11-19 Urgent Pob1, Acute [facility] [id number] 08:37:42 09:52:09 [facility] [id number] [place] [id number] Professio [phone] [place] [address] Office Building [facility] 2019-11-19 2019-11-19 Outpatient R [facility] [id number] Univers 08:40:00 08:40:00 [facility] Results Test Description Test Time Test Comments Results Result Comments Source THYROID STIMULATING HORMONE 2019-11-19 17:48:00 Test Item Value Reference Range Interpretation Comme nts TSH (test code = 4213296371) See_Comment [Automated message] The system which generated this result transmitted ref erence range: 0.45 - 4.70 mIU/L. T he reference range was not used to interpret this result as saloni l/abnormal. Lab Interpretation (test code = Normal 80179-1) [facility] [id number] 17:48:00 Test Item Value Reference Range Interpretation Comments TSH (test code = See_Comment [Automated message] [id number]) The system whic h generated this result transmitted ref erence range: 0.45 - 4 .70 mIU/L. The refe rence range was not u sed to interpret this result as normal/abnor mal. Lab Interpretation (test Normal code = 16579-2) [facility] ([id number])2019-11-19 17:17:00 Test Item Value Reference Range Interpretation Comments NA (test code = 138 mmol/L 135-145 3686240893) K (test code = 4.5 mmol/L 3.5-5 9920576726) CL (test code = 102 mmol/L 98-108 5798619232) CO2 TOTAL (test code = 26 mmol/L 23-31 2872502132) AGAP (test code = 2-16 8984621649) BUN (test code = 17 mg/dL 7-23 8427508194) GLUCOSE (test code = 97 mg/dL 70-110 7719077570) CREATININE (test code = 0.78 mg/dL 0.6-1.25 6539972200) TOTAL BILI (test code = 1.0 mg/dL 0.1-1.2 1874698185) CALCIUM (test code = 10.0 mg/dL 8.6-10.6 3374930331) T PROTEIN (test code = 7.8 g/dL 6.3-8.2 8508229802) ALBUMIN (test code = 4.6 g/dL 3.5-5 4305245050) ALK PHOS (test code = 51 U/L 34-122 1591563655) ALTv (test code = 115 U/L 5-50 H 1742-6) AST(SGOT) (test code = 62 U/L 13-40 H 7577909148) eGFR Calculation mL/min/1.73m2 (Non-) (test code = 0370543182) eGFR Calculation mL/min/1.73m2 () (test code = 0374935710) DON (test code = DON) Association of [...] tests). Lab Interpretation Abnormal (test code = 83986-9) [facility] 17:17:00 Test Item Value Reference Range Interpretation Comments LIPASE (test code = 9715744127) 56 U/L 0-220 Lab Interpretation (test code = Normal 30888-1) [facility] ([id number])2019-11-19 17:17:00 Test Item Value Reference Range Interpretation Comments NA (test code = 138 mmol/L 135-145 7572902638) K (test code = 4.5 mmol/L 3.5-5 8868290023) CL (test code = 102 mmol/L 98-108 5506324735) CO2 TOTAL (test code = 26 mmol/L 23-31 8329177657) AGAP (test code = 2-16 8743575113) BUN (test code = 17 mg/dL 7-23 7435777489) GLUCOSE (test code = 97 mg/dL 70-110 4720503635) CREATININE (test code = 0.78 mg/dL 0.6-1.25 0989249645) TOTAL BILI (test code = 1.0 mg/dL 0.1-1.0 7438481662) CALCIUM (test code = 10.0 mg/dL 8.6-10.6 6970919248) T PROTEIN (test code = 7.8 g/dL 6.3-8.2 0719806664) ALBUMIN (test code = 4.6 g/dL 3.5-5 5865219653) ALK PHOS (test code = 51 U/L 34-122 0770580018) ALTv (test code = 115 U/L 5-50 H 1742-6) AST(SGOT) (test code = 62 U/L 13-40 H 3152707736) eGFR Calculation mL/min/1.73m2 (Non-) (test code = 5917467583) eGFR Calculation mL/min/1.73m2 () (test code = 9805077359) DON (test code = DON) Association of [...] tests). Lab Interpretation Abnormal (test code = 07504-7) [facility] 17:17:00 Test Item Value Reference Range Interpretation Comments LIPASE (test code = 9675937377) 56 U/L 0-220 Lab Interpretation (test code = Normal 76959-3) [facility]IN (A1C)2019-11-19 17:00:00 Test Item Value Reference Range Interpretation Comments HGB A1C (test code = 5.5 % 4-6 4548-4) DON (test code = DON) %A1C (NGSP) Interpretation (ADA)4.8-5.6 ? ? Normal or (Non-Diabetic Range)5.7-6.4 ? ? Increased Risk (Pre-Diabetic)>6.5 ?Diabetes Indicated Lab Interpretation Normal (test code = 44856-6) [facility] (A1C)2019-11-19 17:00:00 Test Item Value Reference Range Interpretation Comments HGB A1C (test code = 5.5 % 4-6 4548-4) DON (test code = DON) %A1C (NGSP) Interpretation (ADA)4.8-5.6 ? ? Normal or (Non-Diabetic Range)5.7-6.4 ? ? Increased Risk (Pre-Diabetic)>6.5 ?Diabetes Indicated Lab Interpretation Normal (test code = 49351-0) [facility] WITH [id number] 16:58:00 Test Item Value Reference Range Interpretation Comments WBC (test code = See_Comment [Automated 4590-2) message] The sy stem which generated this result transmitted reference range : 4.20 - 10.70 10*3/?L. The reference range was not used to interpret this result as normal/abnormal . RBC (test code = See_Comment [Automated 889-8) message] The sy stem which generated this [...] (test code = 38.3 fL 38.5-51.6 L 55098-2) RDW-CV (test code = 11.5 % 12.1-15.4 L 788-0) PLT (test code = See_Comment [Automated 777-3) message] The sy stem which generated this result transmitted reference range : 150 - 328 10*3/ ?L. The reference r [place] was not used to interpret this result as normal/abnormal . MPV (test code = 10.9 fL 9.8-13 73534-1) NRBC/100 WBC (test See_Comment [Automat ed code = 4120525938) message] The system which generated this result transmitted reference range : 0.0 - 10.0 /100 WBCs. The refer ence range was not u sed to interpret th is result as normal/abnormal . NRBC x10^3 (test code <0.01 See_Comment [Auto mated = 9896030183) message] The s ystem which generated this result transmitted reference range : 10*3/?L. The reference range was not used to interpret this result as normal/abnormal . GRAN MAT (NEUT) % 68.6 % (test code = 770-8) IMM GRAN % (test code 0.30 % = 6615798317) LYMPH % (test code = 21.7 % 736-9) MONO % (test code = 7.3 % 5905-5) EOS % (test code = 1.7 % 713-8) BASO % (test code = 0.4 % 706-2) GRAN MAT x10^3(ANC) 4.96 10*3/uL 1.99-6.95 (test code = 7373655347) IMM GRAN x10^3 (test <0.03 0-0.06 code = 6268717175) LYMPH x10^3 (test code 1.57 10*3/uL 1.09-3.23 = 731-0) MONO x10^3 (test code 0.53 10*3/uL 0.36-1.02 = 742-7) EOS x10^3 (test code = 0.12 10*3/uL 0.06-0.53 711-2) BASO x10^3 (test code 0.03 10*3/uL 0.01-0.09 = 704-7) Lab Interpretation Abnormal (test code = 03891-4) [facility] WITH [id number] 16:58:00 Test Item Value Reference Range Interpretation [...] (test code = 38.3 fL 38.5-51.6 L 72214-9) RDW-CV (test code = 11.5 % 12.1-15.4 L 788-0) PLT (test code = See_Comment [Automated 777-3) message] The sy stem which generated this result transmitted reference range : 150 - 328 10*3/ ?L. The reference r [place] was not used to interpret this result as normal/abnormal . MPV (test code = 10.9 fL 9.8-13 98786-5) NRBC/100 WBC (test See_Comment [Automat ed code = 4412416000) message] The system which generated this result transmitted reference range : 0.0 - 10.0 /100 WBCs. The refer ence range was not u sed to interpret th is result as normal/abnormal . NRBC x10^3 (test code <0.01 See_Comment [Auto mated = 9103431036) message] The s ystem which generated this result transmitted reference range : 10*3/?L. The reference range was not used to interpret this result as normal/abnormal . GRAN MAT (NEUT) % 68.6 % (test code = 770-8) IMM GRAN % (test code 0.30 % = 2413873788) LYMPH % (test code = 21.7 % 736-9) MONO % (test code = 7.3 % 5905-5) EOS % (test code = 1.7 % 713-8) BASO % (test code = 0.4 % 706-2) GRAN MAT x10^3(ANC) 4.96 10*3/uL 1.99-6.95 (test code = 8652248352) IMM GRAN x10^3 (test <0.03 0-0.06 code = 1766800874) LYMPH x10^3 (test code 1.57 10*3/uL 1.09-3.23 = 731-0) MONO x10^3 (test code 0.53 10*3/uL 0.36-1.02 = 742-7) EOS x10^3 (test code = 0.12 10*3/uL 0.06-0.53 711-2) BASO x10^3 (test code 0.03 10*3/uL 0.01-0.09 = 704-7) Lab Interpretation Abnormal (test code = 00825-6) [facility]"
[2023-01-22] MEDS ORDERED: NA CHLORIDE 0.9% 1,000 ML ONE (09:25)
[2023-01-22] MEDS ORDERED: SUCRALFATE 1 GM TABLET ONE (09:25)
[2023-01-22] MEDS ORDERED: FAMOTIDINE 20 MG/2 ML VIAL IV ONE (09:26)
[2023-01-22 09:35] LABS: Absolute Lymphocytes (CBC) 1.4 K/uL (0.7-4.9); Hematocrit 39.2 % (39.6-49.0); MCV 87.3 fL (80-100); MPV 7.6 fL (7.6-11.3); Platelets 193 thou/uL (152-406); RBC Red Blood Cell Count 4.49 M/uL (4.33-5.43)
[2023-01-22] MEDS ORDERED: NA CHLORIDE 0.9% 250 ML ONE (09:44)
[2023-01-22] MEDS ORDERED: PROMETHAZINE INJ 25 MG/ML AMP ONE (09:44)
[2023-01-22 09:58] LABS: Albumin 3.7 g/dL (3.4-5.0); Bilirubin Total 0.2 mg/dL (0.2-1.0); Potassium 3.7 mEq/L (3.5-5.1); Protein, Total 7.1 g/dL (6.4-8.2)
--- NOTE | 2023-01-22 11:18 | ER ---
Nurse's Notes [facility] Name: Lang Oneill Age: 32 yrs Sex: Male : 1990 Arrival Date: 01/22/2023 Time: 09:01 Bed 20 Private MD: Diagnosis: Gastro-esophageal reflux disease with esophagitis Presentation: 01/22 09:12 Chief complaint: Patient states: Heartburn since last night. Coronavirus screen: At [facility] this time, the client does not indicate any symptoms associated with coronavirus-19. Ebola Screen: No symptoms or risks identified at this time. Initial Sepsis Screen: Does the patient meet any 2 criteria? No. Patient's initial sepsis screen is negative. Does the patient have a suspected source of infection? No. Patient's initial sepsis screen is negative. Risk Assessment: Do you want to hurt yourself or someone else? Patient reports no desire to harm self or others. Onset of symptoms was January 21, 2023. 09:12 Method Of Arrival: Ambulatory [facility] 09:12 Acuity: SUSIE 3 [facility] Triage Assessment: 09:13 General: Appears in no apparent distress. uncomfortable, Behavior is cooperative, jl7 appropriate for age, anxious. Historical: - Allergies: 09:13 No Known Allergies; jl7 - Home Meds: 09:13 None [Active]; jl7 - PMHx: 09:13 None; jl7 - PSHx: 09:13 None; jl7 - Immunization history:: Adult Immunizations unknown. - Social history:: Smoking status: Patient denies any tobacco usage or history of. Screenin:[address] [facility] ED Fall Risk Assessment (Adult) Score/Fall Risk Level 0 - 2 = Low Risk. Abuse eh3 screen: Denies threats or abuse. Denies injuries from another. Nutritional screening: No deficits noted. Tuberculosis screening: No symptoms or risk factors identified. Assessment: 09:08 General: Appears in no apparent distress. uncomfortable, Behavior is calm, cooperative, eh3 appropriate for age. Pain: Denies pain. Neuro: Level of Consciousness is awake, alert, obeys commands, Oriented to person, place, time, situation. Cardiovascular: Capillary refill < 3 seconds Patient's skin is warm and dry. Respiratory: Airway is patent Respiratory effort is even, unlabored, Respiratory pattern is regular, symmetrical. GI: Abdomen is round non-distended, Reports indigestion. Derm: Skin is pink, warm \T\ dry. Musculoskeletal: Circulation, motion, and sensation intact. 10:00 Reassessment: Patient appears in no apparent distress at this time. Patient and/or eh3 family updated on plan of care and expected duration. Pain level reassessed. Patient is alert, oriented x 3, equal unlabored respirations, skin warm/dry/pink. 11:00 Reassessment: Patient appears in no apparent distress at this time. Patient and/or eh3 family updated on plan of care and expected duration. Pain level reassessed. Patient is alert, oriented x 3, equal unlabored respirations, skin warm/dry/pink. Vital Signs: 09:12 BP 127 / 86; Pulse 72; Resp 15; Temp 98.1; Pulse Ox 97% ; Weight 115.67 kg; Height 5 jl7 ft. 8 in. ; Pain 7/10; 10:00 BP 113 / 77; Pulse 56; Resp 21; Pulse Ox 99% on R/A; eh3 11:00 BP 118 / 67; Pulse 60; Resp 20; Pulse Ox 99% on R/A; eh3 09:12 Body Mass Index 38.77 (115.67 kg, 172.72 cm) jl7 09:12 Pain Scale: Adult jl7 ED Course: 09:02 Patient arrived in ED. rg4 09:02 Yulissa Zamora FNP-C is [facility]. snw 09:02 Jez Buenrostro DO is Attending Physician. snw 09:07 Neisha Gonzalez, RN is Primary Nurse. eh3 09:08 Patient has correct armband on for positive identification. Bed in low position. Call eh3 light in reach. Side rails up X2. Provided Education on: Use of call san. Client placed on continuous cardiac and pulse oximetry monitoring. NIBP monitoring applied. 09:13 Triage completed. jl7 09:13 Arm band placed on right wrist. jl7 09:20 EKG done, by ED staff. aw1 11:22 No provider procedures requiring assistance completed. IV discontinued, intact, eh3 bleeding controlled, No redness/swelling at site. Pressure dressing applied. Administered Medications: 09:15 Drug: Sucralfate PO 1 grams PO once; please make into slurry Route: PO; eh3 10:00 Follow up: Response: No adverse reaction eh3 09:25 Drug: NS 0.9% IV 1000 ml IV at 1 bolus Per protocol; 1000 mL bolus Route: IV; Rate: 1 eh3 bolus; Site: right antecubital; 10:30 Follow up: IV Status: Completed infusion; IV Intake: 1000ml eh3 09:25 Drug: Famotidine IVP 20 mg IVP once; dilute with 10 mL 0.9% NaCl; give over 2 minutes eh3 Route: IVP; Site: right antecubital; 10:00 Follow up: Response: No adverse reaction eh3 09:37 Drug: Promethazine IVP 12.5 mg IVP once; in ns 250ml Route: IVP; Site: right 3 antecubital; 10:00 Follow up: Response: No adverse reaction eh3 09:38 Drug: NS 0.9% IV 250 ml IV at bolus once Route: IV; Rate: bolus; Site: right 3 antecubital; 10:00 Follow up: IV Status: Completed infusion; IV Intake: 250ml eh3 Medication: 11:22 VIS not applicable for this client. eh3 Intake: 10:00 IV: 250ml; Total: 250ml. eh3 10:30 IV: 1000ml; Total: 1250ml. eh3 Outcome: 11:17 Discharge ordered by MD. snw 11:44 Discharged to home ambulatory, with significant other, eh3 11:44 Condition: stable 11:44 Discharge instructions given to patient, Instructed on discharge instructions, follow up and referral plans. medication usage, Demonstrated understanding of instructions, follow-up care, medications, Prescriptions given X 2, 11:45 Patient left the ED. eh3 Signatures: Yulissa Zamora, SDC TEACHER-C SDC TEACHER-Alba Solorio rg4 Brody Joiner RN RN jl7 Neisha Gonzalez RN RN eh3 Rama Meyer aw1
--- NOTE | 2023-01-22 11:18 | EDPHYS ---
Physician Documentation [facility] Name: Lang Oneill Age: 32 yrs Sex: Male : 1990 Arrival Date: 01/22/2023 Time: 09:01 Bed 20 Private MD: ED Physician Jez Buenrostro HPI: 01/22 09:12 This 32 yrs old Male presents to ER via Unassigned with complaints of snw Heartburn. 09:12 The patient presents with abdominal pain in the epigastric area, in the upper abdomen. snw Onset: The symptoms/episode began/occurred acutely, last night. The symptoms radiate to back. Associated signs and symptoms: Pertinent positives: nausea and vomiting. The symptoms are described as burning. Severity of pain: At its worst the pain was moderate. The patient has experienced a previous episode, approximately 2 months ago. The patient has not recently seen a physician. no family hx of heart, lung disease. Pt denies smoking, + ETOH. Historical: - Allergies: 09:13 No Known Allergies; jl7 - Home Meds: 09:13 None [Active]; jl7 - PMHx: 09:13 None; jl7 - PSHx: 09:13 None; jl7 - Immunization history:: Adult Immunizations unknown. - Social history:: Smoking status: Patient denies any tobacco usage or history of. ROS: 09:10 Constitutional: Negative for fever, chills, and weight loss, Eyes: Negative for injury, snw pain, redness, and discharge, ENT: Negative for injury, pain, and discharge, Neck: Negative for injury, pain, and swelling, Cardiovascular: Negative for chest pain, palpitations, and edema, Respiratory: Negative for shortness of breath, cough, wheezing, and pleuritic chest pain, Back: Negative for injury and pain, : Negative for injury, bleeding, discharge, and swelling, MS/Extremity: Negative for injury and deformity, Skin: Negative for injury, rash, and discoloration, Neuro: Negative for headache, weakness, numbness, tingling, and seizure, Psych: Negative for depression, anxiety, suicide ideation, homicidal ideation, and hallucinations, 09:10 Abdomen/GI: Positive for abdominal pain, nausea, vomiting, heartburn, Exam: 09:10 Constitutional: This is a well developed, well nourished patient who is awake, alert, snw and in no acute distress. Head/Face: Normocephalic, atraumatic. Eyes: Pupils equal round and reactive to light, extra-ocular motions intact. Lids and lashes normal. Conjunctiva and sclera are non-icteric and not injected. Cornea within normal limits. Periorbital areas with no swelling, redness, or edema. ENT: Nares patent. No nasal discharge, no septal abnormalities noted. Tympanic membranes are normal and external auditory canals are clear. Oropharynx with no redness, swelling, or masses, exudates, or evidence of obstruction, uvula midline. Mucous membranes moist. Neck: Trachea midline, no thyromegaly or masses palpated, and no cervical lymphadenopathy. Supple, full range of motion without nuchal rigidity, or vertebral point tenderness. No Meningismus. Chest/axilla: Normal chest wall appearance and motion. Nontender with no deformity. No lesions are appreciated. Cardiovascular: Regular rate and rhythm with a normal S1 and S2. No gallops, murmurs, or rubs. Normal PMI, no JVD. No pulse deficits. Respiratory: Lungs have equal breath sounds bilaterally, clear to auscultation and percussion. No rales, rhonchi or wheezes noted. No increased work of breathing, no retractions or nasal flaring. Abdomen/GI: Soft, non-tender, with normal bowel sounds. No distension or tympany. No guarding or rebound. No evidence of tenderness throughout. Back: No spinal tenderness. No costovertebral tenderness. Full range of motion. Skin: Warm, dry with normal turgor. Normal color with no rashes, no lesions, and no evidence of cellulitis. MS/ Extremity: Pulses equal, no cyanosis. Neurovascular intact. Full, normal range of motion. Neuro: Awake and alert, GCS 15, oriented to person, place, time, and situation. Cranial nerves II-XII grossly intact. Motor strength 5/5 in all extremities. Sensory grossly intact. Cerebellar exam normal. Normal gait. Psych: Awake, alert, with orientation to person, place and time. Behavior, mood, and affect are within normal limits. Vital Signs: 09:12 BP 127 / 86; Pulse 72; Resp 15; Temp 98.1; Pulse Ox 97% ; Weight 115.67 kg; Height 5 jl7 ft. 8 in. ; Pain 7/10; 10:00 BP 113 / 77; Pulse 56; Resp 21; Pulse Ox 99% on R/A; eh3 11:00 BP 118 / 67; Pulse 60; Resp 20; Pulse Ox 99% on R/A; eh3 09:12 Body Mass Index 38.77 (115.67 kg, 172.72 cm) [facility] 09:12 Pain Scale: Adult 7 MDM: 09:04 Patient medically screened. snw 09:11 Data reviewed: vital signs, nurses notes. I considered the following discharge snw prescriptions or medication management in the emergency department Medications were administered in the Emergency Department. See MAR. Counseling: I had a detailed discussion with the patient and/or guardian regarding the historical points, exam findings, and any diagnostic results supporting the discharge/admit diagnosis, lab results, the need for outpatient follow up, to return to the emergency department if symptoms worsen or persist or if there are any questions or concerns that arise at home. Special discussion: Based on the patient's Hx, exam, and Dx evaluation, there is no indication for emergent surgery or inpatient Tx. It is understood by the patient/guardian that if the Sx's persist or worsen they need to return immediately for re-evaluation. Based on the history and exam findings, there is no indication for further emergent testing or inpatient evaluation. I discussed with the patient/guardian the need to see the primary care provider for further evaluation of the symptoms. 09:12 Differential diagnosis: esophagitis, chest pain, gastritis. snw 01/22 09:09 Order name: CBC with Diff; Complete Time: 09:44 snw 01/22 09:09 Order name: CMP; Complete Time: 09:59 snw 01/22 09:09 Order name: Lipase; Complete Time: 09:59 snw 01/22 09:09 Order name: EKG; Complete Time: 09:09 snw 18 09:09 Order name: EKG - Nurse/Tech; Complete Time: 09:22 snw 01/22 09:09 Order name: IV Saline Lock; Complete Time: 09:30 snw 18 09:09 Order name: Labs collected and sent; Complete Time: 09:30 snw EC: Rate is 71 beats/min. Rhythm is regular. QRS [place] is Normal. No Q waves. Clinical snw impression: Normal ECG. Administered Medications: 09:15 Drug: Sucralfate PO 1 grams PO once; please make into slurry Route: PO; [facility] 10:00 Follow up: Response: No adverse reaction [facility] 09:25 Drug: NS 0.9% IV 1000 ml IV at 1 bolus Per protocol; 1000 mL bolus Route: IV; Rate: 1 eh3 bolus; Site: right antecubital; 10:30 Follow up: IV Status: Completed infusion; IV Intake: 1000ml [facility] 09:25 Drug: Famotidine IVP 20 mg IVP once; dilute with 10 mL 0.9% NaCl; give over 2 minutes [facility] Route: IVP; Site: right antecubital; 10:00 Follow up: Response: No adverse reaction [facility] 09:37 Drug: Promethazine IVP 12.5 mg IVP once; in ns 250ml Route: IVP; Site: right [facility] antecubital; 10:00 Follow up: Response: No adverse reaction [facility] 09:38 Drug: NS 0.9% IV 250 ml IV at bolus once Route: IV; Rate: bolus; Site: right [facility] antecubital; 10:00 Follow up: IV Status: Completed infusion; IV Intake: 250ml [facility] Disposition: 16:12 I was immediately available on-site in the Emergency Department for consultation in the [facility] care of the patient. Disposition Summary: 01/22/23 11:17 Discharge Ordered Notes: Location: Home snw Condition: Stable snw Diagnosis - Gastro-esophageal reflux disease with esophagitis snw Followup: snw - With: Emergency Department - When: As needed - Reason: Worsening of condition Followup: snw - With: Private Physician - When: 1 - 2 days - Reason: Recheck today's complaints, Continuance of care, Re-evaluation by your physician Discharge Instructions: - Discharge Summary Sheet snw - Food Choices for Gastroesophageal Reflux Disease, Adult snw - Esophagitis snw - Gastroesophageal Reflux Disease, Adult snw - Indigestion snw Forms: - Medication Reconciliation Form snw - Thank You Letter snw - Antibiotic Education snw - Prescription Opioid Use snw - Patient Portal Instructions snw - Leadership Thank You Letter snw - Work release form [facility] Prescriptions: - Protonix 40 mg Oral Tablet - take 1 tablet by ORAL route once daily; 30 tablet; Refills: 0, Product snw Selection Permitted - Carafate 1 gram Oral Tablet - take 2 tablets by ORAL route every 12 hours take on an empty stomach, beginning snw on waking and last dose at bedtime; 100 tablet; Refills: 0, Product Selection Permitted Signatures: Dispatcher [employer] EDMS Yulissa Zamora FNP-C [employer]-Csnw Brody Joiner RN RN jl7 Jez Buenrostro DO DO ms3 Neisha Gonzalez RN RN eh3 Corrections: (The following items were deleted from the chart) 09:12 09:11 Differential diagnosis: esophagitis, chest pain, gastritis snw snw
[2023-01-22 11:56] VITALS: TEMP 98.1
[2023-01-22 11:57] VITALS: O2SAT 99
[2023-01-22 11:59] VITALS: BP 118/67
--- NOTE | 2023-01-24 14:42 | EKG ---
Test Date: 2023-01-22 Test Time: 09:20:52 Belt Machine Operator: MARVA MEASUREMENT RESULTS: Intervals: Rate: 71 IA: 148 QRSD: 90 QT: 396 QTc: 430 Bruin: P: 46 IA: 148 QRS: 6 T: 35 INTERPRETIVE STATEMENTS: Normal sinus rhythm Normal ECG Compared to ECG 11/08/2021 16:46:51 T-wave abnormality no longer present Possible ischemia no longer present Electronically Signed On 01-24-23 14:34:26 CDT by Aron Goode
== END 2023-01-22 11:45 | disposition home or self-care (01) ==
LOC: ER 09:01
DX: K21.00 Gastro-esophageal reflux disease with esophagitis, without bleeding (principal)
CPT/HCPCS: 36415; 80053; 83690; 85025; 93005; 96361; 96365; 96375; 99284; J2550; J7030; J7050